=== PATIENT | male | born 1935 | race Caucasian/White ===

== ENCOUNTER 2019-12-23 15:05 | Emergency (ER) | payer OTHER, MEDICARE ==
--- OUTSIDE RECORDS SUMMARY | 2019-12-23 15:09 | XMS REPORT | Clinical Summary ---
:1935 Author Organization [facility] Address [address] [place] [address] Care Team Providers Name Role Phone Nicole Burr MD Primary Care Provider Allergies Active Allergy Reactions Severity Noted Date Comments Codeine GI Intolerance 02/22/2019 Medications Medication Sig Dispensed Refills Start Date End Date Status furosemide (LASIX) 3 12/12/2018 Active 80 mg tablet simvastatin (ZOCOR) Take 80 mg by 2 12/12/2018 Active 80 MG tablet mouth daily. spironolactone TK1 T PO TID WITH 2 12/30/2018 Active (ALDACTONE) 50 MG FOOD tablet warfarin (COUMADIN) TK 1/2 T PO QD 0 02/02/2019 Active 1 MG tablet warfarin (COUMADIN) Take 4 mg by mouth 0 02/02/2019 Active 4 MG tablet daily. tamsulosin (FLOMAX) Take 0.4 mg by 11 01/07/2019 Active 0.4 mg capsule mouth 2 (two) times a day. ezetimibe-simvastati Take 1 tablet by 0 Active n (VYTORIN) 10-40 mg mouth nightly. per tablet acetaminophen Insert 650 mg into 0 Active (TYLENOL) 650 MG the rectum every 4 suppository (four) hours as needed for mild pain. cetirizine (ZyrTEC) Take 10 mg by 0 Active 10 MG tablet mouth daily. docosahexanoic Take by mouth. 0 Active acid-epa (FISH OIL) 120-180 mg capsule ondansetron (ZOFRAN) Take 1 tablet by 20 tablet 2 05/03/2019 Active 8 MG tablet mouth twice daily 30 minutes before Capecitabine as needed for nausea and vomiting ipratropium 2 sprays into each 0 Active (ATROVENT) 42 mcg nostril 2 (two) (0.06 %) nasal spray times a day. capecitabine Take 3 tabs twice 180 tablet 0 04/25/2019 02 (XELODA) 500 mg daily. Take 12 0 chemo hours apart with tabletIndications: food. Begin taking Rectal cancer (HCC) on radiation treatment days (Wednesday-Wednesday ONLY). capecitabine Take 3 tablets PO 55 tablet 0 05/26/2019 06/09/19 2 (XELODA) 500 mg BID, 12 hours 0 chemo apart with food. tabletIndications: Take on days of Rectal cancer (HCC) radiation only (Wednesday through Wednesday only) Hospital, Clinic, or Ordered Dose Route Frequency Start Date End D ate Status Other Facility Administered Medication ondansetron ODT 4 mg oral every 8 hours 05/02/2019 0 Ended (ZOFRAN-ODT) PRN disintegrating tablet 4 mg Active Problems Problem Noted Date Rectal cancer 04/17/2019 Resolved Problems Problem Noted Date Resolved Date On antineoplastic chemotherapy 06/26/2019 0 Encounters Date Type Specialty Care Team Description 12/13/2019 Orders Only Oncology Tsai, Rectal cancer ( HCC) (Primary Dx); WANDY Dee On antineopla stic chemotherapy 12/13/2019 Orders Only Oncology Leila Tsai MA 12/13/2019 Orders Only Oncology Tsai, Rectal cancer ( HCC) (Primary Dx); WANDY Dee On antineopla stic chemotherapy 12/12/2019 Telephone Consult Oncology Roosevelt Carroll can cer (HCC) MD Ana Rosa PhD (Primary Dx) 12/05/2019 Hospital Encounter Radiology Prakash Carroll MD PhD 12/05/2019 Hospital Encounter Radiology Prakash Carroll MD PhD 11/16/2019 Telephone Radiation Oncology Roberto Sanford MD 11/13/2019 Telephone Oncology Ana Rosa Carroll MD PhD 10/25/2019 Telephone Oncology Ana Rosa Carroll MD PhD 10/06/2019 Telephone Radiation Oncology Roberto Sanford MD 10/04/2019 Telephone Oncology Ana Rosa Carroll MD PhD 09/25/2019 Hospital Encounter Radiation Oncology Roberto Sanford MD 08/08/2019 Orders Only Oncology Tsai, Rectal cancer ( HCC) (Primary Dx); WANDY Dee On antineopla stic chemotherapy 08/03/2019 Telephone Consult Oncology Glen, Rectal can cer (HCC) (Primary Dx); MD Ana Rosa PhD On antineoplast ic chemotherapy 08/03/2019 Travel 06/21/2019 Hospital Encounter Radiation Oncology 06/21/2019 Orders Only Oncology Provider, Unknown 06/20/2019 Lab Lab Glen, Rectal cancer ( HCC) MD Ana Rosa PhD 06/20/2019 Hospital Encounter Radiation Oncology Roberto Sanford ectal cancer (HCC) MD Don (Primary Dx) 06/20/2019 Office Visit Oncology Glen, Rectal cancer ( HCC) (Primary Dx); MD Ana Rosa PhD On antineoplast ic chemotherapy 06/20/2019 Hospital Encounter Radiation Oncology Roberto Sanford (Primary Dx) MD Ann Ochoa Marisel, RN 06/20/2019 Hospital Encounter Radiation Oncology 06/20/2019 Orders Only Oncology Leila Tsai MA 06/20/2019 Orders Only Oncology Provider, Unknown 06/19/2019 Telephone Oncology Ana Rosa Carroll MD PhD 06/19/2019 Orders Only Oncology Provider, Unknown 06/14/2019 Hospital Encounter Radiation Oncology 06/14/2019 Orders Only Oncology Provider, Unknown 06/13/2019 Hospital Encounter Radiation Oncology 06/13/2019 Orders Only Oncology Provider, Unknown 06/12/2019 Hospital Encounter Radiation Oncology 06/12/2019 Orders Only Oncology Provider, Unknown 06/09/2019 Hospital Encounter Radiation Oncology 06/09/2019 Orders Only Oncology Provider, Unknown 06/08/2019 Hospital Encounter Radiation Oncology Roberto Sanford MD 06/08/2019 Hospital Encounter Radiation Oncology Roberto Sanford ectal cancer (HCC) MD Don (Primary Dx) 06/08/2019 Hospital Encounter Radiation Oncology 06/08/2019 Orders Only Oncology Provider, Unknown 06/07/2019 Hospital Encounter Radiation Oncology 06/07/2019 Orders Only Oncology Provider, Unknown 06/06/2019 Documentation Pharmacy Juan Reveles [facility] 06/05/2019 Hospital Encounter Radiation Oncology 06/02/2019 Hospital Encounter Radiation Oncology 06/02/2019 Orders Only Oncology Provider, Unknown 06/01/2019 Hospital Encounter Radiation Oncology Roberto Sanford ectal cancer (HCC) MD Don (Primary Dx) Chanel Patel, EDUARD 06/01/2019 Hospital Encounter Radiation Oncology 06/01/2019 Orders Only Oncology Provider, Unknown 05/31/2019 Hospital Encounter Radiation Oncology 05/31/2019 Orders Only Oncology Provider, Unknown 05/30/2019 Hospital Encounter Radiation Oncology 05/30/2019 Orders Only Oncology Provider, Unknown 05/29/2019 Hospital Encounter Radiation Oncology Roberto Sanford MD 05/29/2019 Hospital Encounter Radiation Oncology 05/29/2019 Orders Only Oncology Provider, Unknown 05/26/2019 Hospital Encounter Radiation Oncology 05/26/2019 Orders Only Oncology Silvio, Rectal cancer ( HCC) Sly, EDUARD (Primary Dx) 05/26/2019 Orders Only Oncology Provider, Unknown 05/26/2019 Documentation Oncology Maureen Urban, [facility] 05/25/2019 Hospital Encounter Radiation Oncology Roberto Sanford ectal cancer (HCC) MD Don (Primary Dx) Barbra Russell, EDUARD 05/25/2019 Hospital Encounter Radiation Oncology 05/25/2019 Orders Only Oncology Provider, Unknown 05/24/2019 Hospital Encounter Radiation Oncology 05/24/2019 Orders Only Oncology Provider, Unknown 05/23/2019 Hospital Encounter Radiation Oncology 05/23/2019 Orders Only Oncology Provider, Unknown 05/22/2019 Hospital Encounter Radiation Oncology 05/22/2019 Orders Only Oncology Provider, Unknown 05/19/2019 Hospital Encounter Radiology Roberto Sanford w ith hemoptysis; MD Don Rectal cancer ( HCC) 05/19/2019 Lab Lab Roberto Sanford with he moptysis; MD Don Rectal cancer ( HCC) 05/19/2019 Hospital Encounter Radiation Oncology 05/19/2019 Orders Only Oncology Provider, Unknown 05/18/2019 Hospital Encounter Radiation Oncology Roberto Sanford with hemoptysis (Primary Dx); MD Don Rectal cancer (HCC) Catrachita Haskins, EDUARD 05/18/2019 Hospital Encounter Radiation Oncology 05/18/2019 Hospital Encounter Radiation Oncology Roberto Sanford ectal cancer (HCC) MD Don (Primary Dx) 05/18/2019 Orders Only Oncology Provider, Unknown 05/17/2019 Hospital Encounter Radiation Oncology 05/17/2019 Orders Only Oncology Provider, Unknown 05/16/2019 Hospital Encounter Radiation Oncology 05/16/2019 Orders Only Oncology Provider, Unknown 05/15/2019 Hospital Encounter Radiation Oncology 05/15/2019 Orders Only Oncology Provider, Unknown 05/12/2019 Hospital Encounter Radiation Oncology 05/12/2019 Orders Only Oncology Provider, Unknown 05/11/2019 Hospital Encounter Radiation Oncology Roberto Sanford ectal cancer (HCC) MD Don (Primary Dx) 05/11/2019 Hospital Encounter Radiation Oncology Roberto Sanford ectal cancer (HCC) MD Don (Primary Dx) Barbra Russell RN 05/11/2019 Hospital Encounter Radiation Oncology 05/11/2019 Orders Only Oncology Provider, Unknown 05/10/2019 Hospital Encounter Radiation Oncology 05/10/2019 Telephone Oncology Ana Rosa Carroll MD PhD 05/10/2019 Orders Only Oncology Provider, Unknown 05/09/2019 Hospital Encounter Radiation Oncology Roberto Sanford MD 05/09/2019 Orders Only Oncology Provider, Unknown 05/03/2019 Documentation Oncology Rosa Giraldo [facility] 05/02/2019 Hospital Encounter Radiation Oncology Roberto Sanford MD 05/02/2019 Hospital Encounter Radiation Oncology Roberto Sanford MD 05/02/2019 Hospital Encounter Radiation Oncology Roberto Sanford ectal cancer (HCC) MD Don (Primary Dx) Sommer Juarez RN 05/02/2019 Hospital Encounter Radiation Oncology Roberto Sanford ectal cancer (HCC) MD Don (Primary Dx) 04/25/2019 Orders Only Oncology Sly Anguiano, EDUARD 04/18/2019 Hospital Encounter Radiation Oncology Roberto Sanford MD 04/14/2019 Orders Only Oncology Tsai, Rectal cancer ( HCC) WANDY Dee (Primary Dx) 04/14/2019 Orders Only Oncology Silvio, Rectal cancer ( HCC) EDUARD Heart (Primary Dx) 04/13/2019 Office Visit Oncology Glen, Rectal cancer ( HCC) MD Ana Rosa PhD (Primary Dx) 04/13/2019 Lab Lab Adebayo Mcginnis Rectal mass MD Shaji 03/28/2019 Orders Only General Surgery Rosita Ornelas Rectal mass (Primary Ammon Dx) 03/21/2019 Office Visit General Surgery Adebayo Mcginnis Rectal ca ncer (HCC) MD Shaji (Primary Dx) 03/14/2019 Lab Lab RahelAdebayo MD 03/13/2019 Hospital Encounter Radiology Rahel, Adebayo Rectal mass MD Shaji 03/10/2019 Orders Only General Surgery Rahel, Adebayo Rectal ma ss (Primary MD Shaji Dx) 03/09/2019 Anesthesia Event Gastroenterology Fred Shultz MD Dhother, Gene Koenig MD 03/09/2019 Surgery Gastroenterology RahelAdebayo sharpe COLONOSC OPY/biopsies MD Shaji /hot forceps polypectomy 03/09/2019 Hospital Encounter Gastroenterology Rahel, Adebayo Girard MD 02/28/2019 Hospital Encounter Radiology Rahel, Adebayo Rectal mass MD Shaji 02/28/2019 Lab Lab Rahel, Adebayo Rectal mass MD Shaji 02/23/2019 Orders Only General Surgery Rahel, Adebayo Girard MD 02/23/2019 Orders Only General Surgery RahelAdebayo sharpe Rectal ma ss (Primary MD Shaji Dx) 02/22/2019 Office Visit General Surgery RahelAdebayo sharpe Rectal bl eeding (Primary Dx); MD Shaji Rectal mass after 12/22/2018 Family History Relation Name Status Comments Father Mother Social History Tobacco Use Types Packs/Day Years Used Date Never Smoker Smokeless Tobacco: Never Used Alcohol Use Drinks/Week oz/Week Comments Never Alcohol Habits Answer Date Recorded How often do you have a drink containing alcohol? Never 02/22/2019 How many drinks containing alcohol do you have on a typical Not asked day when you are drinking? How often do you have six or more drinks on one occasion? No t asked Sex Assigned at Date Recorded Not on file Job Start Date Occupation Industry Not on file Not on file Not on file Travel History Travel Start Travel End No recent travel history available. Last Filed Vital Signs Vital Sign Reading Time Taken Comments Blood Pressure 133/81 06/20/2019 3:01 PM [employer] Pulse 91 06/20/2019 3:01 PM [employer] Temperature 36.6 C (97.9 F) 06/20/2019 3:01 PM [employer] Respiratory Rate 17 06/20/2019 3:01 PM [employer] Oxygen Saturation 98% 06/20/2019 3:01 PM [employer] Inhaled Oxygen Concentration - - Weight 74.9 kg (165 lb 2 oz) 06/20/2019 3:01 PM [employer] Height 162.6 cm (5' 4") 06/20/2019 3:01 PM [employer] Body Mass Index 28.34 06/20/2019 3:01 PM [employer] Plan of Treatment Date Type Specialty Care Team Description 12/26/2019 Telephone Consult Oncology Wandy Carroll MD PhD [address] [facility] [address] [place], [place] [address] 05/02/2020 Lab Lab Ana Rosa Carroll MD PhD [address] [facility] [address] [place], [place] [address] 05/02/2020 Appointment Radiology Ana Rosa Carroll MD PhD [address] [facility] [address] [place], [place] [address] 05/02/2020 Appointment Radiology Ana Rosa Carroll MD PhD [address] [facility] [address]; [address] [place], [place] [address] 05/02/2020 Office Visit Oncology Ana Rosa Carroll MD PhD [address] [facility] [address] [place], [place] [address] Health Maintenance Due Date Last Done Comments SHINGLES VACCINES (#1) 1987 65+ PNEUMOCOCCAL VACCINE (1 of 2 - PCV13) 2002 INFLUENZA VACCINE 01/25/2020 Procedures Procedure Name Priority Date/Time Associated Comments Diagnosis MRI ABD/PELVIC EXTERNAL Routine 11/09/2019 1:03 Results for this STUDY PM CDT procedure are i n the results section. MRI ABD/PELVIC EXTERNAL Routine 11/09/2019 12:31 Results for this STUDY PM CDT procedure are i n the results section. RAD ONC DAILY TREATMENT Routine 06/21/2019 1:10 Results for this PM [employer] procedure are i n the results section. ESTIMATED GFR Routine 06/20/2019 4:08 Results fo r this PM [employer] procedure are i n the results section. URINALYSIS SCREEN AND Routine 06/20/2019 4:08 Rectal cancer R esults for this MICROSCOPY, WITH REFLEX PM [employer] (HCC) proc edure are in TO CULTURE the results section. CARCINOEMBRYONIC ANTIGEN Routine 06/20/2019 4:08 Rectal cance r Results for this (CEA) PM [employer] (HCC) procedure are i n the results section. COMPREHENSIVE METABOLIC Routine 06/20/2019 4:08 Rectal cancer Results for this PANEL PM [employer] (HCC) procedure are i n the results section. HC COMPLETE BLD COUNT Routine 06/20/2019 4:08 Rectal cancer R esults for this W/AUTO DIFF PM [employer] (HCC) procedure are i n the results section. URINE CULTURE Routine 06/20/2019 4:08 Results fo r this PM [employer] procedure are i n the results section. RAD ONC DAILY TREATMENT Routine 06/20/2019 1:19 Results for this PM [employer] procedure are i n the results section. RAD ONC DAILY TREATMENT Routine 06/19/2019 1:22 Results for this PM [employer] procedure are i n the results section. RAD ONC DAILY TREATMENT Routine 06/14/2019 1:46 Results for this PM [employer] procedure are i n the results section. RAD ONC DAILY TREATMENT Routine 06/13/2019 1:25 Results for this PM [employer] procedure are i n the results section. RAD ONC DAILY TREATMENT Routine 06/12/2019 1:14 Results for this PM [employer] procedure are i n the results section. RAD ONC DAILY TREATMENT Routine 06/09/2019 1:39 Results for this PM [employer] procedure are i n the results section. RAD ONC DAILY TREATMENT Routine 06/08/2019 1:19 Results for this PM [employer] procedure are i n the results section. RAD ONC DAILY TREATMENT Routine 06/07/2019 2:08 Results for this PM [employer] procedure are i n the results section. RAD ONC DAILY TREATMENT Routine 06/02/2019 1:51 Results for this PM [employer] procedure are i n the results section. RAD ONC DAILY TREATMENT Routine 06/01/2019 1:23 Results for this PM [employer] procedure are i n the results section. RAD ONC DAILY TREATMENT Routine 05/31/2019 1:46 Results for this PM [employer] procedure are i n the results section. RAD ONC DAILY TREATMENT Routine 05/30/2019 1:04 Results for this PM [employer] procedure are i n the results section. RAD ONC DAILY TREATMENT Routine 05/29/2019 1:26 Results for this PM [employer] procedure are i n the results section. RAD ONC DAILY TREATMENT Routine 05/26/2019 1:28 Results for this PM [employer] procedure are i n the results section. RAD ONC DAILY TREATMENT Routine 05/25/2019 1:08 Results for this PM [employer] procedure are i n the results section. RAD ONC DAILY TREATMENT Routine 05/24/2019 1:27 Results for this PM [employer] procedure are i n the results section. RAD ONC DAILY TREATMENT Routine 05/23/2019 12:59 Results for this PM [employer] procedure are i n the results section. RAD ONC DAILY TREATMENT Routine 05/22/2019 1:20 Results for this PM [employer] procedure are i n the results section. CT CHEST W CONTRAST Routine 05/19/2019 3:45 Cough with Resu lts for this PM [employer] hemoptysis procedure are in Rectal cancer the results (HCC) section. ESTIMATED GFR Routine 05/19/2019 2:19 Results fo r this PM [employer] procedure are i n the results section. HC COMPLETE BLD COUNT Routine 05/19/2019 2:19 Cough with Re sults for this W/AUTO DIFF PM [employer] hemoptysis procedure are in Rectal cancer the results (HCC) section. COMPREHENSIVE METABOLIC Routine 05/19/2019 2:19 Cough with Results for this PANEL PM [employer] hemoptysis procedure are in Rectal cancer the results (HCC) section. RAD ONC DAILY TREATMENT Routine 05/19/2019 1:23 Results for this PM [employer] procedure are i n the results section. RAD ONC DAILY TREATMENT Routine 05/18/2019 2:21 Results for this PM [employer] procedure are i n the results section. RAD ONC DAILY TREATMENT Routine 05/17/2019 1:46 Results for this PM [employer] procedure are i n the results section. RAD ONC DAILY TREATMENT Routine 05/16/2019 1:33 Results for this PM [employer] procedure are i n the results section. RAD ONC DAILY TREATMENT Routine 05/15/2019 1:38 Results for this PM [employer] procedure are i n the results section. RAD ONC DAILY TREATMENT Routine 05/12/2019 1:45 Results for this PM [employer] procedure are i n the results section. RAD ONC DAILY TREATMENT Routine 05/11/2019 1:33 Results for this PM [employer] procedure are i n the results section. RAD ONC DAILY TREATMENT Routine 05/10/2019 1:33 Results for this PM [employer] procedure are i n the results section. RAD ONC DAILY TREATMENT Routine 05/09/2019 1:52 Results for this PM [employer] procedure are i n the results section. HC COMPLETE BLD COUNT Routine 04/13/2019 12:49 Rectal mass Re sults for this W/AUTO DIFF PM [employer] procedure are i n the results section. MRI PELVIS W WO CONTRAST Routine 03/13/2019 2:45 Rectal mass Results for this PM [employer] procedure are i n the results section. SURGICAL PATHOLOGY Routine 03/09/2019 12:02 Resul ts for this REQUEST PM [employer] procedure are i n the results section. SURGICAL PATHOLOGY Routine 03/09/2019 12:02 Resul ts for this REQUEST PM [employer] procedure are i n the results section. SURGICAL PATHOLOGY Routine 03/09/2019 12:02 Resul ts for this REQUEST PM [employer] procedure are i n the results section. COLONOSCOPY 03/09/2019 10:00 Rectal mass AM [employer] CT CHEST W CONTRAST STAT 02/28/2019 5:18 Rectal mass Resu lts for this ABDOMEN W CONTRAST PM [employer] procedure are in PELVIS W CONTRAST the result s section. ESTIMATED GFR STAT 02/28/2019 1:44 Results fo r this PM [employer] procedure are i n the results section. HC COMPLETE BLD COUNT STAT 02/28/2019 1:44 Rectal mass Re sults for this W/AUTO DIFF PM [employer] procedure are i n the results section. COMPREHENSIVE METABOLIC STAT 02/28/2019 1:44 Rectal mass Results for this PANEL PM [employer] procedure are i n the results section. PROTHROMBIN TIME WITH STAT 02/28/2019 1:44 Rectal mass Re sults for this INR PM [employer] procedure are i n the results section. PARTIAL THROMBOPLASTIN STAT 02/28/2019 1:44 Rectal mass R esults for this TIME (PTT) PM [employer] procedure are i n the results section. CARCINOEMBRYONIC ANTIGEN STAT 02/28/2019 1:44 Rectal mass Results for this (CEA) PM [employer] procedure are i n the results section. after 12/22/2018 Results MRI Abd/Pelvic External Study (11/09/2019 1:03 PM CDT)Only the most recent of2 resultswithin the time period is included. Specimen Narrative Performed At This exam was not acquired at a [facility] facility and has not been [facility] interpreted by a [facility] Provider. T he exam was imported into our imaging system. Performing Organization Address City/State/Zipcode Phone Number [facility] [address] [place] [address] RAD ONC DAILY TREATMENT (06/21/2019 1:10 PM [employer]) Pathologist Sig nature Course ID [id number] ARIA Course Start Date 2019-05-02 @11:15 ARIA Treatment Elapsed Days 43 ARIA Course Intent Curative w/chemo ARIA Treatment Dates First Treatment Date: 2019-05-09 @13:52 ARIA Last Treatment Date: 2019-06-21 @13:07 Reference Point ID Rectum Boost ARIA Dosage Given to Date 5.4 ARIA in Gy Session Dosage Given 1.8 ARIA in Gy Plan ID Rectum Boost ARIA Plan Name Rectum Boost ARIA Fractions Treated to 3 of 3 ARIA Date Prescribed Dose Per 1.8 ARIA Fraction in Gy Prescription Dose in 540 ARIA cGy Specimen Performing Organization Address City/[facility] Phone Number DEANN [address] [place] [address] Urinalysis screen and microscopy, with reflex to culture (06/20/2019 4:08 PM [employer]PER[employer]JUST[employer]) Pathologist Sig nature Specimen site Clean catch [facility] Color, UA Straw [facility] Appearance, UA Clear [facility] Specific gravity, 1.009 1.001 - 1.035 [facility] pH, UA 7.0 5.0 - 8.5 [facility] Protein, UA Negative Negative [facility] Glucose, UA Negative Negative [facility] Ketones, UA Negative Negative [facility] Bilirubin, UA Negative Negative [facility] Blood, UA Small (A) Negative [facility] Nitrite, UA Negative Negative [facility] Urobilinogen, UA <2.0 <2.0 [facility] Leukocyte esterase, Negative Negative [facility] WBC, UA <1 0 - 1 /HPF [facility] RBC, UA 2 0 - 5 /HPF [facility] Bacteria, UA None seen None seen [facility] Yeast, UA None seen [facility] Yeast with None seen [facility] pseudohyphae, HOSPITAL Specimen Urine Performing Organization Address City/[facility]/Zipcode Phone Number [facility] DEPARTMENT OF PATHOLOGY AND [address] [place], [place] [address] [facility] [place] [phone] [place] [address] Estimated GFR (06/20/2019 4:08 PM [employer] OPERATOR [employer]JUSTER)Only the most recent of3 resultswithin the time period is included. Estimated GFR 44 (A) mL/min/1.73 [facility] Comment: m2 HOSPITAL Catergory Units Interpretation G1 >=90 Normal or high G2 60-89 Mildly decreased G3a 45-59 Mildly to moderately decreas ed G3b 30-44 Moderately to severely decre ased G4 15-29 Severely decreased G5 <15 Kidney failure The eGFR was calculated using the Chronic Kidney Disea se Epidemiology Collaboration (CKD-EPI) equation. Interpretation is based on recommendations of the National Kidney Foundation-Kidney Disease Outcomes Loco lity Initiative (NKF-KDOQI) published in 2014. Specimen Plasma specimen Performing Organization Address City/State/Zipcode Phone Number [facility] DEPARTMENT OF PATHOLOGY AND [address] [place], [place] [address] GENOMIC MEDICINE [facility] [address] [place] [address] CBC with platelet and differential (06/20/2019 4:08 PM COM[employer] OPERATOR ADJUSTER)Only the most recent of4 resultswithin the time period is included. WBC 5.61 4.50 - 11.00 [facility] k/uL HOSPITAL RBC 3.85 (L) 4.40 - 6.00 [facility] m/[facility] HGB 12.0 (L) 14.0 - 18.0 [facility] gdL [facility] HCT 34.5 (L) 41.0 - 51.0 % [facility] MCV 89.6 82.0 - 100.0 [facility] MCH 31.2 27.0 - 34.0 pg [facility] MCHC 34.8 31.0 - 37.0 [facility] RDW - SD 58.6 (H) 37.0 - 55.0 fL [facility] MPV 8.6 (L) 8.8 - 13.2 fL [facility] Platelet count 223 150 - 400 k/uL [facility] Nucleated RBC 0.00 /100 WBC [facility] Neutrophils 74.5 (H) 39.0 - 69.0 % [facility] Lymphocytes 8.9 (L) 25.0 - 45.0 % [facility] Monocytes 11.8 (H) 0.0 - 10.0 % [facility] Eosinophils 3.6 0.0 - 5.0 % [facility] Basophils 0.5 0.0 - 1.0 % [facility] Immature granulocytes 0.7Comment: 0.0 - 1.0 % [facility] "Immature HOSPITAL granulocytes" (promyelocytes , myelocytes, metamyelocytes ) Specimen Blood Performing Organization Address City/State/Zipcode Phone Number [facility] DEPARTMENT OF PATHOLOGY AND [address] [place] [phone] Urine culture (06/20/2019 4:08 PM COMPRESSOR OPERATOR ADJUSTER) Pathologist Sig nature Urine culture SEE COMMENTComment: [facility] Bacteriuria screen HOSPITAL negative. Specimen Performing Organization Address City/[facility]/Zipcode Phone Number [facility] DEPARTMENT OF PATHOLOGY AND [address] [place] [phone] Carcinoembryonic antigen (CEA) (06/20/2019 4:08 PM COMPRESSOR OPERATOR ADJUSTER)Only the most recent of2 resultswithin the time period is included. Pathologist [facility] CEA 4.5 (H) 0.0 - 3.8 [facility] Comment: ng/mL HOSPITAL Reference range for heavy smokers: 0.0 - 5.5 ng/mL The BE[employer] Annabella 8000 CEA immunoassay was used. Results obtained with different assay methods or kits should not be used interchangeably and may be differen t. Specimen Serum Performing Organization Address [facility] Cent[facility] Phone Number [facility] DEPARTMENT OF PATHOLOGY AND [address] [place] [phone] Comprehensive metabolic panel (06/20/2019 4:08 PM COMPRESSOR OPERATOR ADJUSTER)Only the most recent of3 resultswithin the time period is included. Sodium 134 (L) 135 - 148 [facility] mEq/L [facility] Potassium 4.0 3.5 - 5.0 [facility] mEq/L [facility] Chloride 94 (L) 98 - 112 mEq/L [facility] CO2 26 24 - 31 mEq/L [facility] Anion gap 14@ANIO 7 - 15 mEq/L [facility] BUN 22 8 - 23 mg/dL [facility] Creatinine 1.46 (H) 0.70 - 1.20 [facility] mg/dL HOSPITAL Glucose 117 (H) 65 - 99 mg/dL [facility] Calcium 9.3 8.8 - 10.2 [facility] mg/dL HOSPITAL Protein 7.4 6.3 - 8.3 g/dL [facility] Comment: HOSPITAL Hxvovkk5102.6-7.0 g/dL 1 muif9600.4-7.6 g/dL 7 months-9nsvh110.1-7.3 g/dL 1-2 piexy009.6-7.5 g/dL >3 xtlbu894.0-8.0 g/dL 18-4931862.3-8.3 g/dL Albumin 3.9 3.5 - 5.0 g/dL [facility] A/G ratio 1.1 0.7 - 3.8 [facility] Alkaline phosphatase 50 40 - 129 U/L [facility] AST 34 10 - 50 U/L [facility] ALT 16 5 - 50 U/L [facility] Total bilirubin 0.8 0.0 - 1.2 [facility] mg/dL [facility] Specimen Plasma specimen Performing Organization Address City/State/Zipcode Phone Number [facility] DEPARTMENT OF PATHOLOGY AND [address] [place] [phone] GENOMIC MEDICINE [address] [address] RAD ONC DAILY TREATMENT (06/20/2019 1:19 PM COMPRESSOR OPERATOR ADJUSTER) Pathologist Sig nature Course ID C1 ARIA Course Start Date 2019-05-02 @11:15 ARIA Treatment Elapsed Days 42 ARIA Course Intent Curative w/chemo ARIA Treatment Dates First Treatment Date: 2019-05-09 @13:52 ARIA Last Treatment Date: 2019-06-20 @13:19 Reference Point ID Rectum Boost ARIA Dosage Given to Date 3.6 ARIA in Gy Session Dosage Given 1.8 ARIA in Gy Plan ID Rectum Boost ARIA Plan Name Rectum Boost ARIA Fractions Treated to 2 of 3 ARIA Date Prescribed Dose Per 1.8 ARIA Fraction in Gy Prescription Dose in 540 ARIA cGy Specimen Performing Organization Address City/State/Zipcode Phone Number [address] [place] [address] RAD ONC DAILY TREATMENT (06/19/2019 1:22 PM COMPRESSOR OPERATOR ADJUSTER) Pathologist Sig nature Course ID C1 ARIA Course Start Date 2019-05-02 @11:15 ARIA Treatment Elapsed Days 41 ARIA Course Intent Curative w/chemo ARIA Treatment Dates First Treatment Date: 2019-05-09 @13:52 ARIA Last Treatment Date: 2019-06-19 @13:21 Reference Point ID Rectum Boost ARIA Dosage Given to Date 1.8 ARIA in Gy Session Dosage Given 1.8 ARIA in Gy Plan ID Rectum Boost ARIA Plan Name Rectum Boost ARIA Fractions Treated to 1 of 3 ARIA Date Prescribed Dose Per 1.8 ARIA Fraction in Gy Prescription Dose in 540 ARIA cGy Specimen Performing Organization Address [facility] Phone Number ARIOmar [address] [place] [address] RAD ONC DAILY TREATMENT (06/14/2019 1:46 PM COMPRESSOR OPERATOR ADJUSTER) Pathologist Sig nature Course ID C1 ARIA Course Start Date 2019-05-02 @11:15 ARIA Treatment Elapsed Days 36 ARIA Course Intent Curative w/chemo ARIA Treatment Dates First Treatment Date: 2019-05-09 @13:52 ARIA Last Treatment Date: 2019-06-14 @13:46 Reference Point ID Rectum ARIA Dosage Given to Date 45 ARIA in Gy Session Dosage Given 1.8 ARIA in Gy Plan ID Rectum ARIA Plan Name Rectum ARIA Fractions Treated to 25 of 25 ARIA Date Prescribed Dose Per 1.8 ARIA Fraction in Gy Prescription Dose in 4,500 ARIA cGy Specimen Performing Organization Address [facility] Phone Number ARIA [address] [place] [address] RAD ONC DAILY TREATMENT (06/13/2019 1:25 PM COMPRESSOR OPERATOR ADJUSTER) Pathologist [facility] Emefcy Course ID C1 ARIA Course Start Date 2019-05-02 @11:15 ARIA Treatment Elapsed Days 35 ARIA Course Intent Curative w/chemo ARIA Treatment Dates First Treatment Date: 2019-05-09 @13:52 ARIA Last Treatment Date: 2019-06-13 @13:25 Reference Point ID Rectum ARIA Dosage Given to Date 43.2 ARIA in Gy Session Dosage Given 1.8 ARIA in Gy Plan ID Rectum ARIA Plan Name Rectum ARIA Fractions Treated to 24 of 25 ARIA Date Prescribed Dose Per 1.8 ARIA Fraction in Gy Prescription Dose in 4,500 ARIA cGy Specimen Performing Organization Address [facility] Phone Number DEANN [address] [place] [address] RAD ONC DAILY TREATMENT (06/12/2019 1:14 PM COMPRESSOR OPERATOR ADJUSTER) Pathologist [facility] Emefcy Course ID C1 ARIA Course Start Date 2019-05-02 @11:15 ARIA Treatment Elapsed Days 34 ARIA Course Intent Curative w/chemo ARIA Treatment Dates First Treatment Date: 2019-05-09 @13:52 ARIA Last Treatment Date: 2019-06-12 @13:11 Reference Point ID Rectum ARIA Dosage Given to Date 41.4 ARIA in Gy Session Dosage Given 1.8 ARIA in Gy Plan ID Rectum ARIA Plan Name Rectum ARIA Fractions Treated to 23 of 25 ARIA Date Prescribed Dose Per 1.8 ARIA Fraction in Gy Prescription Dose in 4,500 ARIA cGy Specimen Performing Organization Address [facility] Phone Number ARIA [address] [place] [address] RAD ONC DAILY TREATMENT (06/09/2019 1:39 PM COMPRESSOR OPERATOR ADJUSTER) Pathologist Sig nature Course ID C1 ARIA Course Start Date 2019-05-02 @11:15 ARIA Treatment Elapsed Days 31 ARIA Course Intent Curative w/chemo ARIA Treatment Dates First Treatment Date: 2019-05-09 @13:52 ARIA Last Treatment Date: 2019-06-09 @13:39 Reference Point ID Rectum ARIA Dosage Given to Date 39.6 ARIA in Gy Session Dosage Given 1.8 ARIA in Gy Plan ID Rectum ARIA Plan Name Rectum ARIA Fractions Treated to of ARIA Date Prescribed Dose Per 1.8 ARIA Fraction in Gy Prescription Dose in 4,500 ARIA cGy Specimen Performing Organization Address [facility] Phone Number ARIA [address] [place] [address] RAD ONC DAILY TREATMENT (06/08/2019 1:19 PM COMPRESSOR OPERATOR ADJUSTER) Pathologist Sig nature Course ID C1 ARIA Course Start Date 2019-05-02 @11:15 ARIA Treatment Elapsed Days 30 ARIA Course Intent Curative w/chemo ARIA Treatment Dates First Treatment Date: 2019-05-09 @13:52 ARIA Last Treatment Date: 2019-06-08 @13:19 Reference Point ID Rectum ARIA Dosage Given to Date 37.8 ARIA in Gy Session Dosage Given 1.8 ARIA in Gy Plan ID Rectum ARIA Plan Name Rectum ARIA Fractions Treated to 21 of 25 ARIA Date Prescribed Dose Per 1.8 ARIA Fraction in Gy Prescription Dose in 4,500 ARIA cGy Specimen Performing Organization Address [facility] Phone Number ARIA [address] [place] [address] RAD ONC DAILY TREATMENT (06/07/2019 2:08 PM COMPRESSOR OPERATOR ADJUSTER) Pathologist Sig nature Course ID C1 ARIA Course Start Date 2019-05-02 @11:15 ARIA Treatment Elapsed Days 29 ARIA Course Intent Curative w/chemo ARIA Treatment Dates First Treatment Date: 2019-05-09 @13:52 ARIA Last Treatment Date: 2019-06-07 @14:06 Reference Point ID Rectum ARIA Dosage Given to Date 36 ARIA in Gy Session Dosage Given 1.8 ARIA in Gy Plan ID Rectum ARIA Plan Name Rectum ARIA Fractions Treated to 20 of 25 ARIA Date Prescribed Dose Per 1.8 ARIA Fraction in Gy Prescription Dose in 4,500 ARIA cGy Specimen Performing Organization Address [facility] Phone Number [facility] [address] [place] [address] RAD ONC DAILY TREATMENT (06/02/2019 1:51 PM COMPRESSOR OPERATOR ADJUSTER) Pathologist Sig nature Course ID C1 ARIA Course Start Date 2019-05-02 @11:15 ARIA Treatment Elapsed Days 24 ARIA Course Intent Curative w/chemo ARIA Treatment Dates First Treatment Date: 2019-05-09 @13:52 ARIA Last Treatment Date: 2019-06-02 @13:49 Reference Point ID Rectum ARIA Dosage Given to Date 34.2 ARIA in Gy Session Dosage Given 1.8 ARIA in Gy Plan ID Rectum ARIA Plan Name Rectum ARIA Fractions Treated to ARIA Date Prescribed Dose Per 1.8 ARIA Fraction in Gy Prescription Dose in 4,500 ARIA cGy Specimen Performing Organization Address [facility] Phone Number [facility] [address] [place] [address] RAD ONC DAILY TREATMENT (06/01/2019 1:23 PM COMPRESSOR OPERATOR ADJUSTER) Pathologist Sig nature Course ID C1 ARIA Course Start Date 2019-05-02 @11:15 ARIA Treatment Elapsed Days 23 ARIA Course Intent Curative w/chemo ARIA Treatment Dates First Treatment Date: 2019-05-09 @13:52 ARIA Last Treatment Date: 2019-06-01 @13:22 Reference Point ID Rectum ARIA Dosage Given to Date 32.4 ARIA in Gy Session Dosage Given 1.8 ARIA in Gy Plan ID Rectum ARIA Plan Name Rectum ARIA Fractions Treated to 18 of 25 ARIA Date Prescribed Dose Per 1.8 ARIA Fraction in Gy Prescription Dose in 4,500 ARIA cGy Specimen Performing Organization Address [facility] Phone Number DEANN [address] [place] [address] RAD ONC DAILY TREATMENT (05/31/2019 1:46 PM COMPRESSOR OPERATOR ADJUSTER) Pathologist Sig nature Course ID C1 ARIA Course Start Date 2019-05-02 @11:15 ARIA Treatment Elapsed Days 22 ARIA Course Intent Curative w/chemo ARIA Treatment Dates First Treatment Date: 2019-05-09 @13:52 ARIA Last Treatment Date: 2019-05-31 @13:46 Reference Point ID Rectum ARIA Dosage Given to Date 30.6 ARIA in Gy Session Dosage Given 1.8 ARIA in Gy Plan ID Rectum ARIA Plan Name Rectum ARIA Fractions Treated to 17 of 25 ARIA Date Prescribed Dose Per 1.8 ARIA Fraction in Gy Prescription Dose in 4,500 ARIA cGy Specimen Performing Organization Address [facility] Phone Number [facility]Omar [address] [place] [address] RAD ONC DAILY TREATMENT (05/30/2019 1:04 PM COMPRESSOR OPERATOR ADJUSTER) Pathologist Sig nature Course ID C1 ARIA Course Start Date 2019-05-02 @11:15 ARIA Treatment Elapsed Days 21 ARIA Course Intent Curative w/chemo ARIA Treatment Dates First Treatment Date: 2019-05-09 @13:52 ARIA Last Treatment Date: 2019-05-30 @13:03 Reference Point ID Rectum ARIA Dosage Given to Date 28.8 ARIA in Gy Session Dosage Given 1.8 ARIA in Gy Plan ID Rectum ARIA Plan Name Rectum ARIA Fractions Treated to 16 of 25 ARIA Date Prescribed Dose Per 1.8 ARIA Fraction in Gy Prescription Dose in 4,500 ARIA cGy Specimen Performing Organization Address [facility] Phone Number [facility]mar [address] [place] [address] RAD ONC DAILY TREATMENT (05/29/2019 1:26 PM COMPRESSOR OPERATOR ADJUSTER) Pathologist Sig nature Course ID C1 ARIA Course Start Date 2019-05-02 @11:15 ARIA Treatment Elapsed Days 20 ARIA Course Intent Curative w/chemo ARIA Treatment Dates First Treatment Date: 2019-05-09 @13:52 ARIA Last Treatment Date: 2019-05-29 @13:19 Reference Point ID Rectum ARIA Dosage Given to Date 27 ARIA in Gy Session Dosage Given 1.8 ARIA in Gy Plan ID Rectum ARIA Plan Name Rectum ARIA Fractions Treated to 15 of 25 ARIA Date Prescribed Dose Per 1.8 ARIA Fraction in Gy Prescription Dose in 4,500 ARIA cGy Specimen Performing Organization Address [facility] Phone Number DEANN [address] [place] [address] RAD ONC DAILY TREATMENT (05/26/2019 1:28 PM COMPRESSOR OPERATOR ADJUSTER) Pathologist Sig nature Course ID C1 ARIA Course Start Date 2019-05-02 @11:15 ARIA Treatment Elapsed Days 17 ARIA Course Intent Curative w/chemo ARIA Treatment Dates First Treatment Date: 2019-05-09 @13:52 ARIA Last Treatment Date: 2019-05-26 @13:27 Reference Point ID Rectum ARIA Dosage Given to Date 25.2 ARIA in Gy Session Dosage Given 1.8 ARIA in Gy Plan ID Rectum ARIA Plan Name Rectum ARIA Fractions Treated to 14 of 25 ARIA Date Prescribed Dose Per 1.8 ARIA Fraction in Gy Prescription Dose in 4,500 ARIA cGy Specimen Performing Organization Address [facility] Phone Number [facility]mar [address] [place] [address] RAD ONC DAILY TREATMENT (05/25/2019 1:08 PM COMPRESSOR OPERATOR ADJUSTER) Pathologist Sig nature Course ID C1 ARIA Course Start Date 2019-05-02 @11:15 ARIA Treatment Elapsed Days 16 ARIA Course Intent Curative w/chemo ARIA Treatment Dates First Treatment Date: 2019-05-09 @13:52 ARIA Last Treatment Date: 2019-05-25 @13:08 Reference Point ID Rectum ARIA Dosage Given to Date 23.4 ARIA in Gy Session Dosage Given 1.8 ARIA in Gy Plan ID Rectum ARIA Plan Name Rectum ARIA Fractions Treated to 13 of 25 ARIA Date Prescribed Dose Per 1.8 ARIA Fraction in Gy Prescription Dose in 4,500 ARIA cGy Specimen Performing Organization Address [facility] Phone Number DEANN [address] [place] [address] RAD ONC DAILY TREATMENT (05/24/2019 1:27 PM COMPRESSOR OPERATOR ADJUSTER) Pathologist Sig nature Course ID C1 ARIA Course Start Date 2019-05-02 @11:15 ARIA Treatment Elapsed Days 15 ARIA Course Intent Curative w/chemo ARIA Treatment Dates First Treatment Date: 2019-05-09 @13:52 ARIA Last Treatment Date: 2019-05-24 @13:26 Reference Point ID Rectum ARIA Dosage Given to Date 21.6 ARIA in Gy Session Dosage Given 1.8 ARIA in Gy Plan ID Rectum ARIA Plan Name Rectum ARIA Fractions Treated to of 25 ARIA Date Prescribed Dose Per 1.8 ARIA Fraction in Gy Prescription Dose in 4,500 ARIA cGy Specimen Performing Organization Address [facility] Phone Number DEANN [address] [place] [address] RAD ONC DAILY TREATMENT (05/23/2019 12:59 PM COMPRESSOR OPERATOR ADJUSTER) Pathologist Sig nature Course ID C1 ARIA Course Start Date 2019-05-02 @11:15 ARIA Treatment Elapsed Days 14 ARIA Course Intent Curative w/chemo ARIA Treatment Dates First Treatment Date: 2019-05-09 @13:52 ARIA Last Treatment Date: 2019-05-23 @12:59 Reference Point ID Rectum ARIA Dosage Given to Date 19.8 ARIA in Gy Session Dosage Given 1.8 ARIA in Gy Plan ID Rectum ARIA Plan Name Rectum ARIA Fractions Treated to ARIA Date Prescribed Dose Per 1.8 ARIA Fraction in Gy Prescription Dose in 4,500 ARIA cGy Specimen Performing Organization Address [facility] Phone Number ARIA [address] [place] [address] RAD ONC DAILY TREATMENT (05/22/2019 1:20 PM COMPRESSOR OPERATOR ADJUSTER) Pathologist Sig nature Course ID C1 ARIA Course Start Date 2019-05-02 @11:15 ARIA Treatment Elapsed Days 13 ARIA Course Intent Curative w/chemo ARIA Treatment Dates First Treatment Date: 2019-05-09 @13:52 ARIA Last Treatment Date: 2019-05-22 @13:20 Reference Point ID Rectum ARIA Dosage Given to Date 18 ARIA in Gy Session Dosage Given 1.8 ARIA in Gy Plan ID Rectum ARIA Plan Name Rectum ARIA Fractions Treated to 10 of 25 ARIA Date Prescribed Dose Per 1.8 ARIA Fraction in Gy Prescription Dose in 4,500 ARIA cGy Specimen Performing Organization Address [facility] Phone Number DEANN [address] [place] [address] CT Chest W Contrast (05/19/2019 3:45 PM COMPRESSOR OPERATOR ADJUSTER) Specimen Narrative Performed At EXAMINATION: CT CHEST W CONTRAST HM [facility]IANT CLINICAL HISTORY: 84 years Male R04.2 Hemoptysis, C20 Malignant neoplasm of rectum, Hemoptysis persistent or re curring TECHNIQUE: Multiple axial images of the chest were o btained following intravenous contrast. Sagittal and coronal computerize d reformatted images were also obtained. CT imaging was performed wi iterative reconstruction techniques and/or automat ed exposure control to reduce radiation dos e. COMPARISON: February 28, 2019 IMPRESSION: Lungs and airways: Subpleural reticular thickening wit h a basilar predominance. No definite honeycombing. No definite tr action bronchiectasis. Nonspecific fibrosis is suspected. Fin ding is similar in appearance to prior. Mild bronchial wall thickening without dilatation most pronounced in the lung bases, right slightly greater than left compatible with bronchitis. Small am ount of mucus plugging is present peripherally in the right lower lobe Mild mosaic pattern throughout the lungs. No suspiciou s focal nodules or consolidation Pleura: Small nonspecific subcentimeter mediastinal an d hilar lymph nodes some of which are calcified likely from granulomatous disease Mediastinum and lymph nodes: No lymphade nopathy. Cardiovascular: 4 chambered cardiomegaly, unchanged. P ulmonary artery is not dilated measuring 3.0 cm Moderate calcified athero sclerotic vascular disease in the coronary arteries and aor ta. Upper abdomen: No suspicious abnormaliti es. Bones: Degenerative changes of the osseous structures. No suspicious lesions. Other: Bilateral gynecomastia SUMMARY: Subpleural reticular thickening with a basilar predomi nance. No definite honeycombing. No definite traction bronchiectasis. Non specific fibrosis is suspected. Finding is similar in appearance to prio r. Mild bronchial wall thickening without dilatation most pronounced in the lung bases, right slightly grea ter than left compatible with bronchitis. Small amount of mucus plug ging is present peripherally in the right lower lobe [facility]-[id number] Procedure Note Interface, Radiology Results Incoming - 05/19/2019 3:56 PM COMPRESSOR OPERATOR ADJUSTER EXAMINATION: CT CHEST W CONTRAST CLINICAL HISTORY: 84 years Male R04.2 He moptysis, C20 Malignant neoplasm of rectum, Hemoptysis persistent or recurring TECHNIQUE: Multiple axial images of the chest were obtained following intravenous contrast. Sagittal and coronal computerized reformatted images were also obtained. CT imaging was performed with iterative reconstruction techniques and/or automated exposure control to reduce radiation dos e. COMPARISON: February 28, 2019 IMPRESSION: Lungs and airways: Subpleural reticular thickening with a basilar predominance. No definite honeycombing. No definite traction bronchiectasis. Nonspecific fibrosis is suspected. Finding is similar in appearance to prior. Mild bronchial wall thickening without dilatation most pronounced in th e lung bases, right slightly greater than left compatible with bronchitis. Small amount of mucus plugging is present peripherally in the right lower lobe Mild mosaic pattern throughout the lungs . No suspicious focal nodules or consolidation Pleura: Small nonspecific subcentimeter mediastinal and hilar lymph nodes some of which are calcified likely from granulomatous disease Mediastinum and lymph nodes: No lymphade nopathy. Cardiovascular: 4 chambered cardiomegaly , unchanged. Pulmonary artery is not dilated measuring 3.0 cm Moderate calcified atherosclerotic vascular disease in the coronary arteries and aorta. Upper abdomen: No suspicious abnormaliti es. Bones: Degenerative changes of the osseo us structures. No suspicious lesions. Other: Bilateral gynecomastia SUMMARY: Subpleural reticular thickening with a b asilar predominance. No definite honeycombing. No definite traction bronchiectasis. Nonspecific fibrosis is suspected. Finding is similar in appearance to prior. Mild bronchial wall thickening without dilatation most pronounced in the lung bases, right slightly greater than left compatible with bronchitis. Small amount of mucus plugging is present peripherally in the right lower lobe [id number] Performing Organization Address City/[facility]/Zipcode Phone Number [facility] [address] [place] [address] RAD ONC DAILY TREATMENT (05/19/2019 1:23 PM COMPRESSOR OPERATOR ADJUSTER) Pathologist [facility] Course ID C1 ARIA Course Start Date 2019-05-02 @11:15 ARIA Treatment Elapsed Days 10 ARIA Course Intent Curative w/chemo ARIA Treatment Dates First Treatment Date: 2019-05-09 @13:52 ARIA Last Treatment Date: 2019-05-19 @13:23 Reference Point ID Rectum ARIA Dosage Given to Date 16.2 ARIA in Gy Session Dosage Given 1.8 ARIA in Gy Plan ID Rectum ARIA Plan Name Rectum ARIA Fractions Treated to ARIA Date Prescribed Dose Per 1.8 ARIA Fraction in Gy Prescription Dose in 4,500 ARIA cGy Specimen Performing Organization Address City/[facility]/[employer] Phone Number [facility]mar [address] [place] [address] RAD ONC DAILY TREATMENT (05/18/2019 2:21 PM COMPRESSOR OPERATOR ADJUSTER) Pathologist Sig nature Course ID C1 ARIA Course Start Date 2019-05-02 @11:15 ARIA Treatment Elapsed Days 9 ARIA Course Intent Curative w/chemo ARIA Treatment Dates First Treatment Date: 2019-05-09 @13:52 ARIA Last Treatment Date: 2019-05-18 @14:21 Reference Point ID Rectum ARIA Dosage Given to Date 14.4 ARIA in Gy Session Dosage Given 1.8 ARIA in Gy Plan ID Rectum ARIA Plan Name Rectum ARIA Fractions Treated to 8 of 25 ARIA Date Prescribed Dose Per 1.8 ARIA Fraction in Gy Prescription Dose in 4,500 ARIA cGy Specimen Performing Organization Address [facility] Phone Number [facility] [address] [place] [address] RAD ONC DAILY TREATMENT (05/17/2019 1:46 PM COMPRESSOR OPERATOR ADJUSTER) Pathologist Sig nature Course ID C1 ARIA Course Start Date 2019-05-02 @11:15 ARIA Treatment Elapsed Days 8 ARIA Course Intent Curative w/chemo ARIA Treatment Dates First Treatment Date: 2019-05-09 @13:52 ARIA Last Treatment Date: 2019-05-17 @13:42 Reference Point ID Rectum ARIA Dosage Given to Date 12.6 ARIA in Gy Session Dosage Given 1.8 ARIA in Gy Plan ID Rectum ARIA Plan Name Rectum ARIA Fractions Treated to 7 of 25 ARIA Date Prescribed Dose Per 1.8 ARIA Fraction in Gy Prescription Dose in 4,500 ARIA cGy Specimen Performing Organization Address [facility] Phone Number [facility] [address] [place] [address] RAD ONC DAILY TREATMENT (05/16/2019 1:33 PM COMPRESSOR OPERATOR ADJUSTER) Pathologist Sig nature Course ID C1 ARIA Course Start Date 2019-05-02 @11:15 ARIA Treatment Elapsed Days 7 ARIA Course Intent Curative w/chemo ARIA Treatment Dates First Treatment Date: 2019-05-09 @13:52 ARIA Last Treatment Date: 2019-05-16 @13:32 Reference Point ID Rectum ARIA Dosage Given to Date 10.8 ARIA in Gy Session Dosage Given 1.8 ARIA in Gy Plan ID Rectum ARIA Plan Name Rectum ARIA Fractions Treated to 6 of 25 ARIA Date Prescribed Dose Per 1.8 ARIA Fraction in Gy Prescription Dose in 4,500 ARIA cGy Specimen Performing Organization Address [facility] Phone Number [facility] [address] [place] [address] RAD ONC DAILY TREATMENT (05/15/2019 1:38 PM COMPRESSOR OPERATOR ADJUSTER) Pathologist Sig nature Course ID C1 ARIA Course Start Date 2019-05-02 @11:15 ARIA Treatment Elapsed Days 6 ARIA Course Intent Curative w/chemo ARIA Treatment Dates First Treatment Date: 2019-05-09 @13:52 ARIA Last Treatment Date: 2019-05-15 @13:38 Reference Point ID Rectum ARIA Dosage Given to Date 9 ARIA in Gy Session Dosage Given 1.8 ARIA in Gy Plan ID Rectum ARIA Plan Name Rectum ARIA Fractions Treated to 5 of 25 ARIA Date Prescribed Dose Per 1.8 ARIA Fraction in Gy Prescription Dose in 4,500 ARIA cGy Specimen Performing Organization Address [facility] Phone Number DEANN [address] [place] [address] RAD ONC DAILY TREATMENT (05/12/2019 1:45 PM COMPRESSOR OPERATOR ADJUSTER) Pathologist Sig nature Course ID C1 ARIA Course Start Date 2019-05-02 @11:15 ARIA Treatment Elapsed Days 3 ARIA Course Intent Curative w/chemo ARIA Treatment Dates First Treatment Date: 2019-05-09 @13:52 ARIA Last Treatment Date: 2019-05-12 @13:45 Reference Point ID Rectum ARIA Dosage Given to Date 7.2 ARIA in Gy Session Dosage Given 1.8 ARIA in Gy Plan ID Rectum ARIA Plan Name Rectum ARIA Fractions Treated to 4 of 25 ARIA Date Prescribed Dose Per 1.8 ARIA Fraction in Gy Prescription Dose in 4,500 ARIA cGy Specimen Performing Organization Address [facility] Phone Number DEANN [address] [place] [address] RAD ONC DAILY TREATMENT (05/11/2019 1:33 PM COMPRESSOR OPERATOR ADJUSTER) Pathologist Sig nature Course ID C1 ARIA Course Start Date 2019-05-02 @11:15 ARIA Treatment Elapsed Days 2 ARIA Course Intent Curative w/chemo ARIA Treatment Dates First Treatment Date: 2019-05-09 @13:52 ARIA Last Treatment Date: 2019-05-11 @13:33 Reference Point ID Rectum ARIA Dosage Given to Date 5.4 ARIA in Gy Session Dosage Given 1.8 ARIA in Gy Plan ID Rectum ARIA Plan Name Rectum ARIA Fractions Treated to 3 of 25 ARIA Date Prescribed Dose Per 1.8 ARIA Fraction in Gy Prescription Dose in 4,500 ARIA cGy Specimen Performing Organization Address [facility] Phone Number [facility] [address] [place] [address] RAD ONC DAILY TREATMENT (05/10/2019 1:33 PM COMPRESSOR OPERATOR ADJUSTER) Pathologist Sig nature Course ID C1 ARIA Course Start Date 2019-05-02 @11:15 ARIA Treatment Elapsed Days 1 ARIA Course Intent Curative w/chemo ARIA Treatment Dates First Treatment Date: 2019-05-09 @13:52 ARIA Last Treatment Date: 2019-05-10 @13:33 Reference Point ID Rectum ARIA Dosage Given to Date 3.6 ARIA in Gy Session Dosage Given 1.8 ARIA in Gy Plan ID Rectum ARIA Plan Name Rectum ARIA Fractions Treated to 2 of 25 ARIA Date Prescribed Dose Per 1.8 ARIA Fraction in Gy Prescription Dose in 4,500 ARIA cGy Specimen Performing Organization Address [facility] Phone Number [facility] [address] [place] [address] RAD ONC DAILY TREATMENT (05/09/2019 1:52 PM COMPRESSOR OPERATOR ADJUSTER) Pathologist Sig nature Course ID C1 ARIA Course Start Date 2019-05-02 @11:15 ARIA Treatment Elapsed Days 0 ARIA Course Intent Curative w/chemo ARIA Treatment Dates First Treatment Date: 2019-05-09 @13:52 ARIA Last Treatment Date: 2019-05-09 @13:52 Reference Point ID Rectum ARIA Dosage Given to Date 1.8 ARIA in Gy Session Dosage Given 1.8 ARIA in Gy Plan ID Rectum ARIA Plan Name Rectum ARIA Fractions Treated to 1 of 25 ARIA Date Prescribed Dose Per 1.8 ARIA Fraction in Gy Prescription Dose in 4,500 ARIA cGy Specimen Performing Organization Address [facility] Phone Number DEANN [address] [place] [address] MRI Pelvis W Wo Contrast (03/13/2019 2:45 PM COMPRESSOR OPERATOR ADJUSTER) Specimen Narrative Performed At This result has an attachment that is no t available. EXAMINATION: MRI PELVIS W WO CONTRAST HM RADIANT CLINICAL HISTORY: K62.89 Other specifi ed diseases of anus and rectum, Rectal Mass COMPARISON: CT dated 02/28/2019, MRI dated 02/28/2007. TECHNIQUE: Multiplanar, multisequence MR I of the pelvis with and without contrast material was performed with a rectal cancer staging protocol, including high-resolution oblique T2 images through the rectum. 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 Tumor is non-circumferent ial in morphology and measures approximately 2 cm transverse dimension as well. There is f ull-thickness invasion of as well as invasion beyond the muscularis propria, with tumor extending approximately 5 mm anteriorly into the mesorectal fat, compatible with T3 disease. 2.The anterior peritoneal reflection is poorly visualized, although given the low rectal location, tumor is likely below the reflection. 3.There is no suspicious mesorectal benjamin opathy. There is no extra mesorectal adenopathy in the pelvis. This is compatible with N0 disease. 4.The urinary bladder is unremarkable. 5.Status post left hip replacement. No suspicious os seous lesion. 6.Mild prostatomegaly. [facility]-[id number] Procedure Note [facility], Radiology Results Incoming - 03/14/2019 9:57 AM COMPRESSOR OPERATOR ADJUSTER EXAMINATION: MRI PELVIS W WO CONTRAST CLINICAL HISTORY: K62.89 Other specifie d diseases of anus and rectum, Rectal Mass COMPARISON: CT dated 02/28/2019, MRI rad ed 02/28/2007. TECHNIQUE: Multiplanar, multisequence MR I of the pelvis with and without contrast material was performed with a rectal cancer staging protocol, including high-resolution oblique T2 images through the rectum. 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 Tumor is non-circumferential in morphology and measures approximately 2 cm transverse dimension as well. There is f ull-thickness invasion of as well as invasion beyond the muscularis propria, with tumor extending approximately 5 mm anteriorly into the mesorectal fat, compatible with T3 disease. 2.The anterior peritoneal reflection is poorly visualized, although given the low rectal location, tumor is likely below the reflection. 3.There is no suspicious mesorectal benjamin opathy. There is no extra mesorectal adenopathy in the pelvis. This is compatible with N0 disease. 4.The urinary bladder is unremarkable. 5.Status post left hip replacement. No suspicious osseous lesion. 6.Mild prostatomegaly. [facility]-[id number] Performing Organization Address City/State/Zipcode Phone Number [facility] [address] [place] [address] Surgical pathology request (03/09/2019 12:02 PM COMPRESSOR OPERATOR ADJUSTER)Only the most recent of3 resultswithin the time period is included. [facility] DEPARTMENT OF PATHOLOGY AND GENOMIC MEDICINE Surgical pathology See link below for [facility] DEPARTMENT O F report PDF Lab Report PATHOLOGY AND GENOMIC MEDICINE Result status This is Supplemental [facility] DEPARTMENT OF Report for PATHOLOGY AND [id number] GENOMIC MEDICINE Specimen Performing Organization Address City/[facility] Phone Number [facility] DEPARTMENT OF PATHOLOGY AND [address] [place], [place] [address] Chest W Contrast Abdomen W Contrast Pelvis W Contrast (02/28/2019 5:18 PM COMPRESSOR OPERATOR ADJUSTER) Specimen Narrative Performed At EXAMINATION: CT CHEST W CONTRAST ABDOM EN W CONTRAST PELVIS W CONTRAST RADIANT CLINICAL HISTORY: K62.89 Other specified diseases of anus and rectum, rectal mass TECHNIQUE: Multiple axial images of the chest, abdomen , and pelvis were obtained following intravenous administration of iodin ated contrast. Sagittal and coronal computerized reform atted images were obtained. CT imaging was performed with iterative reconstruction techniques and/or automated exposure control to reduce rad iation dose. COMPARISON: 07/11/2014 FINDINGS: Chest: 1. No mediastinal or hilar masses are pr esent. 2.There are some nonspecific mediastinal lymph nodes. 3.Heart is enlarged, and there are coron pema artery calcifications. 4.There are no pleural effusions. 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 There is no acute i nfiltrate or mass. 6.There is bilateral gynecomastia. Abdomen: 1. Liver appears small. No masses are se en. 2.There is a calcified gallstone. 3.Spleen is not enlarged. 4.Portal vein is patent. 5.Pancreas, adrenals, and kidneys do not demonstrate any masses. 6.There is no retroperitoneal adenopathy or ascites. 7.There is an umbilical hernia containin g fat. 8.There is no intestinal obstruction. Pelvis: 1. There is some mild thickening of the lower rectal w all, which correspond to provided clinical history of rectal mass . This can be evaluated further by means of pelvis MRI with rectal protocol. 2.There is no pelvic adenopathy or fluid collection. 3.Prostate gland is slightly enlarged. 4.There is a left hip replacement. 5.There are degenerative changes in the lumbar spine. IMPRESSION: 1.Lower rectal wall thickening. Recommend pelvis MRI w ith rectal protocol. 2.No evidence of metastatic disease. 3.Incidental findings as mentioned above . [facility]-[id number] Procedure Note [facility], Radiology Results Incoming - 02/28/2019 6:13 PM COMPRESSOR OPERATOR ADJUSTER EXAMINATION: CT CHEST W CONTRAST ABDOMEN W CONTRAST PELVIS W CONTRAST CLINICAL HISTORY: K62.89 Other specifie d diseases of anus and rectum, rectal mass TECHNIQUE: Multiple axial images of the chest, abdomen, and pelvis were obtained following intravenous administration of iodinated contrast. Sagittal and coronal computerized reformatted images were obtained. CT imaging was performed with iterative reconstruction techniques and/or automated exposure control to reduce radiation dose. COMPARISON: 07/11/2014 FINDINGS: Chest: 1. No mediastinal or hilar masses are pr esent. 2.There are some nonspecific mediastinal lymph nodes. 3.Heart is enlarged, and there are coron pema artery calcifications. 4.There are no pleural effusions. 5.There are reduced lung volumes and per ipheral fibrotic changes consistent with UIP. There is no acute infiltrate or mass. 6.There is bilateral gynecomastia. Abdomen: 1. Liver appears small. No masses are se en. 2.There is a calcified gallstone. 3.Spleen is not enlarged. 4.Portal vein is patent. 5.Pancreas, adrenals, and kidneys do not demonstrate any masses. 6.There is no retroperitoneal adenopathy or ascites. 7.There is an umbilical hernia containin g fat. 8.There is no intestinal obstruction. Pelvis: 1. There is some mild thickening of the lower rectal wall, which correspond to provided clinical history of rectal mass. This can be evaluated further by means of pelvis MRI with rectal protocol. 2.There is no pelvic adenopathy or fluid collection. 3.Prostate gland is slightly enlarged. 4.There is a left hip replacement. 5.There are degenerative changes in the lumbar spine. IMPRESSION: 1.Lower rectal wall thickening. Recommen d pelvis MRI with rectal protocol. 2.No evidence of metastatic disease. 3.Incidental findings as mentioned above . [facility]-[id number] Performing Organization Address City/[facility]/Zipcode Phone Number [facility] [address] [place] [address] Partial thromboplastin time, activated (02/28/2019 1:44 PM COMPRESSOR OPERATOR ADJUSTER) PTT 36.2 (H) 23.0 - 36.0 [facility] Comment: [facility] PTT therapeutic range for unfractionated heparin is 61.0-112.0 seconds which corresponds to Anti-Xa 0.3-0.7 U/ml. Specimen Blood Performing Organization Address City/State/Zipcode Phone Number [facility] DEPARTMENT OF PATHOLOGY AND [address] [place] [address] [phone] [address] Prothrombin time with INR (02/28/2019 1:44 PM COMPRESSOR OPERATOR ADJUSTER) Prothrombin time 24.5 (H) 11.5 - 14.5 [facility] INR 2.3 [place] Comment: [facility] International Normalized Ratio (INR) is a [facility] monitoring tool for patients who are stable on oral anticoagulant therapy. An INR of 2.0-3.0 is suggested for deep vein thrombosis/pulmonary embolism. Specimen Blood Performing Organization Address [facility] Phone Number [facility] DEPARTMENT OF PATHOLOGY AND [address] [place] [address] [phone] [address] after 12/22/2018 Insurance Payer Benefit Plan / Subscriber ID Effective Dates Phone Addre ss Type Group MEDICARE MEDICARE PART A xxxxxxxxxxx 2002-Marlene [place] Medicare AND B t AAR AARP SUPPLEMENT xxxxxxxxxxx 2018-Present Commercial Guarantor Name Account Type Relation to Date of Phone Billing Patient Address Paul Zhang Personal/Family Self 1935 [address] (Home) [place] [address] Advance Directives For more information, please contact: [phone] Type Date Recorded Patient Title Department Manager Explanati on Advance Directives, Living Will and Medical Power of Employee Benefits Coordinator
--- OUTSIDE RECORDS SUMMARY | 2019-12-23 15:12 | XMS REPORT | Continuity of Care Document ---
:1935 Author Organization [facility] t Address [address] [place] [address] Care Team Providers Name Role Phone Franny Burr MD. Primary Care Physician Eulalio SABA Attending Clinician Unavailable Glen JACKSON PhD Attending Clinician Omar Wheatley MD Attending Clinician Only, Test Attending Clinician Unavailable Don Sanford MD Attending Clinician Provider Attending Clinician Unavailable Ann RN Attending Clinician Unavailable Abdirizak [facility] Attending Clinician Unavailable Jorge RN Attending Clinician Unavailable Silvio RN Attending Clinician Unavailable Moyvaalexus [facility] Attending Clinician Unavailable Drew RN Attending Clinician Unavailable Divine RN Attending Clinician Unavailable [facility]al [facility] Attending Clinician Unavailable Shaji Mcginnis MD Attending Clinician Ammon Ornelas Attending Clinician Josué Shultz MD Attending Clinician Arya Morocho MD Attending Clinician Omar Wheatley MD Admitting Clinician RAHEL Admitting Clinician Unavailable Payers Payer Name Policy Policy Number Effective Expiration Source Type Date Date MEDICAREMEDICARE PART xxxxxxxxxxx 2002 Rafa Nelson AND 00:00:00 [facility] [place] [place] [place] x[facility]xx 2018 [facility] SUPPLEMENTxxxxxxxxxxx 00:00:00 Met rashad 2018-PresentComme rcial Problems Condition Condition Condition Status Onset Resolution Last Treating Co mments Source Name Details Category Date Date Treatment Clinician Date Rectal Rectal Disease Active 2018-04 [facility] cancer cancer 2-23 [facility] 00:00: st 00 History of Past Illness Condition Condition Condition Status Onset Resolution Last Treating Co mments Source Name Details Category Date Date Treatment Clinician Date On On Disease Resolve 2019-08-03 2019-08-03 [facility] antineopla antineopla d 3-02 00:00:00 11:29:46 Methodi stic stic 00:00: st chemothera chemothera 00 py py Allergies, Adverse Reactions, Alerts Allergy Allergy Status Severity Reaction(s) Onset Inactive Treating Comm ents Source Name Type Date Date Clinician Robby Kitchen Active GI 2018-04 [facility] ty to Intolerance 0-30 Metho di adverse 00:00: st reaction 00 s to drug Social History Social Habit Start Date Stop Date Quantity Comments Source History [facility] Meth odist Alcohol Std Drinks History [facility] Meth odist Alcohol Binge Sex Assigned At [facility] ethodist Alcohol intake 2019-06-20 2019-06-[address] [facility] thodist 00:00:00 00:00:00 non-drinker (finding) History [facility] 2019-02-22 2019-02-22 1 [facility] Meth odist Alcohol Frequency 00:00:00 00:00:00 Smoking Status Start Date Stop Date Source Never smoker [facility] Methodis t Medications Ordered Filled Start Stop Current Ordering Indication Dosage Frequency Signature Comments Components Source Medication Medication Date Date Medication? Clinician (SIG) Name Name ezetimibe-s 2020- Yes 1{tbl} QD Take 1 [place] imvastatin 2-25 tablet by Meth wolf (VYTORIN) 15:02: mouth st 10-40 mg 18 nightly. per tablet acetaminoph 2020-0 Yes 650mg Q4H Insert 650 Herman en 2-25 mg into Methodi (TYLENOL) 15:02: the rectum st 650 MG 18 every 4 suppository (four) hours as needed for mild pain. cetirizine 2019-0 Yes 10mg QD Take 10 mg [place] (ZyrTEC) 10 2-25 by mouth Meth wolf MG tablet 15:02: daily. st 18 docosahexan 2019-0 Yes Take by Michelle ston oic 2-25 mouth. Methodi acid-epa 15:02: st (FISH OIL) 18 120-180 mg capsule ipratropium 2019-0 Yes 2{spray Q.5D 2 sprays Herman (ATROVENT) 2-25 } into each Meth wolf 42 mcg 15:02: nostril 2 st (0.06 %) 18 (two) nasal spray times a day. capecitabin 2020- No Rectal Take 3 [place] e (XELODA) 05-26 02-14 cancer tablets PO Methodi 500 mg 00:00: 23:59 (HCC) BID, 12 st chemo 00 :00 hours tablet apart with food. Take on days of radiation only (Wednesday through Wednesday only) ondansetron Yes Take 1 [place] (ZOFRAN) 8 1-08 tablet by Meth wolf MG tablet 00:00: mouth 00 twice daily 30 minutes before Capecitabi ne as needed for nausea and vomiting ondansetron 2020- No 4mg Q8H [place] ODT 1-07 02-06 [facility] (ZOFRAN-ODT 10:29: 10:28 st ) 55 :55 disintegrat ing tablet 4 mg capecitabin 2018-04 2020- No Rectal Take 3 [place] (XELODA) 01-20 cancer tabs twice [facility] 500 mg 00:00: 23:59 ([facility]) daily. st chemo 00 :00 Take 12 tablet hours apart with food. Begin taking on radiation treatment days (Wednesday- ONLY). warfarin 2018-04 Yes TK 1/2 T [place] (COUMADIN) 0-10 PO QD Methodi 1 MG tablet 00:00: st 00 warfarin 2018-04 Yes 4mg QD Take 4 mg [place] (COUMADIN) 0-10 by mouth Metho di 4 MG tablet 00:00: daily. st 00 tamsulosin Yes .4mg Q.5D Take 0.4 Michelle ston (FLOMAX) 9-14 mg by [facility] 0.4 mg 00:00: mouth 2 st capsule 00 (two) times a day. spironolact Yes TK1 T PO [place] one 9-06 TID WITH Methodi (ALDACTONE) 00:00: FOOD st 50 MG 00 tablet furosemide 2018- Yes Virgil (LASIX) 80 8-19 Methodi mg tablet 00:00: st 00 simvastatin 2018-0 Yes 80mg QD Take 80 mg Virgil (ZOCOR) 80 8-19 by mouth Metho di MG tablet 00:00: daily. st 00 Vital Signs Vital Name Observation Time Observation Value Comments Source Systolic blood 2019-06-20 15:01:00 133 mm[Hg] Arieto n Mosque pressure Diastolic blood 2019-06-20 15:01:00 81 mm[Hg] Leidy on [facility]que pressure Heart rate 2019-06-20 15:01:00 91 /min Virgil Wong Body temperature 2019-06-20 15:01:00 36.61 Petrona [place] [facility] Respiratory rate 2019-06-20 15:01:00 17 /min [place] [facility] Body height 2019-06-20 15:01:00 162.6 cm Virgil Wong Body weight 2019-06-20 15:01:00 74.9 kg Virgil Wong BMI 2019-06-20 15:01:00 28.34 kg/m2 Virgil Wong Oxygen saturation in 2019-06-20 15:01:00 98 /min Virgil Wong Arterial blood by Pulse oximetry Procedures Procedure Date / Time Performing Clinician Source Performed MRI ABD/PELVIC EXTERNAL 2019-11-09 13:03:00 Ana Rosa Carroll STUDY MRI ABD/PELVIC EXTERNAL 2019-11-09 12:31:00 Ana Rosa Carroll STUDY RAD ONC DAILY TREATMENT 2019-06-21 13:10:22 Provider, Arnulfo Wong URINE CULTURE 2019-06-20 16:08:00 Ana Rosa Carroll Met hodist HC COMPLETE BLD COUNT 2019-06-20 16:08:00 Ana Rosa Carroll W/AUTO DIFF COMPREHENSIVE METABOLIC 2019-06-20 16:08:00 Ana Rosa Carroll PANEL CARCINOEMBRYONIC ANTIGEN 2019-06-20 16:08:00 Ana Rosa Carroll (CEA) URINALYSIS SCREEN AND 2019-06-20 16:08:00 Abdelrahim, Maen [place] [facility] MICROSCOPY, WITH REFLEX TO CULTURE ESTIMATED GFR 2019-06-20 16:08:00 Glen Ana Rosa Virgil Met hodist RAD ONC DAILY TREATMENT 2019-06-20 13:19:40 Provider, Unknown [place] [facility] RAD ONC DAILY TREATMENT 2019-06-19 13:22:03 Provider, Unknown [place] [facility] RAD ONC DAILY TREATMENT 2019-06-14 13:46:15 Provider, Unknown [place] [facility] RAD ONC DAILY TREATMENT 2019-06-13 13:25:41 Provider, Unknown [place] [facility] RAD ONC DAILY TREATMENT 2019-06-12 13:14:58 Provider, Unknown [place] [facility] RAD ONC DAILY TREATMENT 2019-06-09 13:39:59 Provider, Unknown [place] [facility] RAD ONC DAILY TREATMENT 2019-06-08 13:19:42 Provider, Unknown [place] [facility] RAD ONC DAILY TREATMENT 2019-06-07 14:08:25 Provider, Unknown [place] [facility] RAD ONC DAILY TREATMENT 2019-06-02 13:51:12 Provider, Unknown [place] [facility] RAD ONC DAILY TREATMENT 2019-06-01 13:23:07 Provider, Unknown [place] [facility] RAD ONC DAILY TREATMENT 2019-05-31 13:46:42 Provider, Unknown [place] [facility] RAD ONC DAILY TREATMENT 2019-05-30 13:04:03 Provider, Unknown [place] [facility] RAD ONC DAILY TREATMENT 2019-05-29 13:26:54 Provider, Unknown [place] [facility] RAD ONC DAILY TREATMENT 2019-05-26 13:28:06 Provider, Unknown [place] [facility] RAD ONC DAILY TREATMENT 2019-05-25 13:08:24 Provider, Unknown [place] [facility] RAD ONC DAILY TREATMENT 2019-05-24 13:27:39 Provider, Unknown [place] [facility] RAD ONC DAILY TREATMENT 2019-05-23 12:59:43 Provider, Unknown [place] [facility] RAD ONC DAILY TREATMENT 2019-05-22 13:20:33 Provider, Unknown [place] [facility] CT CHEST W CONTRAST 2019-05-19 15:45:20 Jong Sanford COMPREHENSIVE METABOLIC 2019-05-19 14:19:00 Jong Sanford PANEL HC COMPLETE BLD COUNT 2019-05-19 14:19:00 Jong Sanford W/AUTO DIFF ESTIMATED GFR 2019-05-19 14:19:00 Jong Sanford Me thodist RAD ONC DAILY TREATMENT 2019-05-19 13:23:23 Provider, Unknown [place] [facility] RAD ONC DAILY TREATMENT 2019-05-18 14:21:48 Provider, Unknown [place] [facility] RAD ONC DAILY TREATMENT 2019-05-17 13:46:12 Provider, Unknown [place] [facility] RAD ONC DAILY TREATMENT 2019-05-16 13:33:05 Provider, Unknown [place] [facility] RAD ONC DAILY TREATMENT 2019-05-15 13:38:56 Provider, Unknown [place] [facility] RAD ONC DAILY TREATMENT 2019-05-12 13:45:18 Provider, Unknown [place] [facility] RAD ONC DAILY TREATMENT 2019-05-11 13:33:42 Provider, Unknown [place] [facility] RAD ONC DAILY TREATMENT 2019-05-10 13:33:55 Provider, Unknown [place] [facility] RAD ONC DAILY TREATMENT 2019-05-09 13:52:57 Provider, Unknown [place] [facility] HC COMPLETE BLD COUNT 2019-04-13 12:49:00 Rosita Ornelas Mosque W/AUTO DIFF MRI PELVIS W WO CONTRAST 2019-03-13 14:45:00 Adebayo Mcginnis SURGICAL PATHOLOGY REQUEST 2019-03-09 12:02:00 Adebayo Mcginnis COLONOSCOPY 2019-03-09 10:00:00 Adebayo Mcginnis Meth odist Shaji CT CHEST W CONTRAST ABDOMEN 2019-02-28 17:18:48 Adebayo Mcginnis W CONTRAST PELVIS W Shaji CONTRAST CARCINOEMBRYONIC ANTIGEN 2019-02-28 13:44:00 Adebayo Mcginnis (CEA) Shaji PARTIAL THROMBOPLASTIN TIME 2019-02-28 13:44:00 Adebayo Mcginnis (PTT) Shaji PROTHROMBIN TIME WITH INR 2019-02-28 13:44:00 Adebayo Mcginnis COMPREHENSIVE METABOLIC 2019-02-28 13:44:00 Adebayo Mcginnis PANEL Shaji COMPLETE BLD COUNT 2019-02-28 13:44:00 Adebayo Mcginnis Mosque W/AUTO DIFF Shaji ESTIMATED GFR 2019-02-28 13:44:00 RahelAdebayo sharpe Herman Yudith Girard Plan of Care Planned Activity Planned Date Details Comments Source Future Scheduled 2020-01-25 INFLUENZA VACCINE [place] [facility] Test 00:00:00 [code = INFLUENZA VACCINE] Future Scheduled 2002 65+ PNEUMOCOCCAL [facility] Test 00:00:00 VACCINE (1 of 2 - PCV13) [code = 65+ PNEUMOCOCCAL VACCINE (1 of 2 - PCV13)] Future Scheduled 1987 SHINGLES VACCINES (#1) H [place] [facility] Test 00:00:00 [code = SHINGLES VACCINES (#1)] Encounters Start End Encounter Admission Attending Care Care Encounter Source Date/Time Date/Time Type Type Clinicians Facility Department ID 2019-12-12 2019-12-12 Outpatient [facility] [id number] [facility] 00:00:00 00:00:00 MAEN 231 [facility] i 2019-12-05 2019-12-05 Outpatient [facility] [id number] [place] 00:00:00 00:00:00 MAEN 805 [facility] 2019-12-05 2019-12-05 Outpatient [facility] [id number] [facility] 00:00:00 00:00:00 MAEN 822 [facility] i 2019-11-29 2019-11-[id number] [id number] 07:16:00 10:03:00 Encounter Shaji Patel [id number] [place] 4.2.7.2.686 [facility] [id number] [place] 071 2019-11-28 2019-11-28 Laboratory Only, [id number] 10:25:51 10:40:51 Only Test Amanda [id number] [place] 4.2.7.2.686 [place] [id number] [facility] 2019-11-15 2019-11-15 [place] [id number] 08:07:00 12:40:00 Encounter Shaji Patel [id number] [place] 4.2.7.2.686 Surgical [id number] [place] 071 2019-11-14 2019-11-14 Laboratory Only, Ad[facility] [id number] 08:53:59 10:42:19 Only Test [place] [id number] [place] 4.2.7.2.686 [place] [id number] 2019-09-25 2019-09-25 Outpatient SUNNY, [facility] [id number] [place] 00:00:00 00:00:00 JONG [address] 2019-08-03 2019-08-03 Outpatient ABDELRAHIM, [facility] [id number] [facility] 00:00:00 00:00:00 ANA ROSA [address] 2019-06-21 2019-06-21 Outpatient [facility] [id number] [place] 00:00:00 00:00:[address] 2019-06-20 2019-06-20 Outpatient ONEILRAHIM, [facility] [id number] [facility] 00:00:00 00:00:00 ANA ROSA [address] 2019-06-20 2019-06-20 Outpatient [facility] [id number] [place] 00:00:00 00:00:[address] 2019-06-20 2019-06-20 Outpatient ABDDARONRAHIM, [facility] [id number] [facility] 00:00:00 00:00:00 ANA ROSA [address] 2019-06-20 2019-06-20 Outpatient SUNNY, [facility] [id number] [place] 00:00:00 00:00:00 JONG [address] 2019-06-20 2019-06-20 Outpatient SUNNY, [facility] [id number] [facility] 00:00:00 00:00:00 JONG [address] 2019-06-14 2019-06-14 Outpatient [facility] [id number] [place] 00:00:00 00:00:[address] 2019-06-13 2019-06-13 Outpatient [facility] [id number] [facility] 00:00:00 00:00:[address] 2019-06-12 2019-06-12 Outpatient [facility] [id number] [place] 00:00:00 00:00:[address] 2019-06-09 2019-06-09 Outpatient [facility] [id number] [place] 00:00:00 00:00:[address] 2019-06-08 2019-06-08 Outpatient LEEACH, [facility] [id number] [facility] 00:00:00 00:00:00 JONG [address] 2019-06-08 2019-06-08 Outpatient SUNNY, [facility] [id number] [facility] 00:00:00 00:00:00 JONG [address] 2019-06-08 2019-06-08 Outpatient [facility] [id number] [place] 00:00:00 00:00:[address] 2019-06-07 2019-06-07 Outpatient [facility] [id number] [place] 00:00:00 00:00:[address] 2019-06-05 2019-06-05 Outpatient [facility] [id number] [place] 00:00:00 00:00:[address] 2019-06-02 2019-06-02 Outpatient [facility] [id number] [place] 00:00:00 00:00:[address] 2019-06-01 2019-06-01 Outpatient SUNNY, [facility] [id number] [place] 00:00:00 00:00:00 JONG [address] 2019-06-01 2019-06-01 Outpatient [facility] [id number] [place] 00:00:00 00:00:[address] 2019-05-31 2019-05-31 Outpatient [facility] [id number] [place] 00:00:00 00:00:[address] 2019-05-30 2019-05-30 Outpatient [facility] [id number] [place] 00:00:00 00:00:[address] 2019-05-29 2019-05-29 Outpatient LEEACH, [facility] [id number] [facility] 00:00:00 00:00:00 JONG [address] 2019-05-29 2019-05-29 Outpatient [facility] [id number] [place] 00:00:00 00:00:[address] 2019-05-26 2019-05-26 Outpatient [facility] [id number] [facility] 00:00:00 00:00:[address] 2019-05-25 2019-05-25 Outpatient LEEACH, [facility] [id number] [facility] 00:00:00 00:00:00 JONG [address] 2019-05-25 2019-05-25 Outpatient [facility] [id number] [facility] 00:00:00 00:00:[address] 2019-05-24 2019-05-24 Outpatient [facility] [id number] [facility] 00:00:00 00:00:[address] 2019-05-23 2019-05-23 Outpatient [facility] [id number] [facility] 00:00:00 00:00:[address] 2019-05-22 2019-05-22 Outpatient [facility] [id number] [facility] 00:00:00 00:00:[address] 2019-05-19 2019-05-19 Outpatient LEEACH, [facility] [id number] [facility] 00:00:00 00:00:00 JONG [address] 2019-05-19 2019-05-19 Outpatient [facility] [id number] [facility] 00:00:00 00:00:[address] 2019-05-18 2019-05-18 Outpatient [facility] [id number] [facility] 00:00:00 00:00:[address] 2019-05-18 2019-05-18 Outpatient SUNNY, [facility] [id number] [facility] 00:00:00 00:00:00 JONG [address] 2019-05-18 2019-05-18 Outpatient [facility] [id number] [facility] 00:00:00 00:00:[address] 2019-05-17 2019-05-17 Outpatient [facility] [id number] [place] 00:00:00 00:00:[address] 2019-05-16 2019-05-16 Outpatient [facility] [id number] [place] 00:00:00 00:00:[address] 2019-05-15 2019-05-15 Outpatient [facility] [id number] [facility] 00:00:00 00:00:[address] 2019-05-12 2019-05-12 Outpatient [facility] [id number] [facility] 00:00:00 00:00:[address] 2019-05-11 2019-05-11 Outpatient [facility] [id number] [facility] 00:00:00 00:00:[address] 2019-05-11 2019-05-11 Outpatient FARACH, [facility] [id number] [facility] 00:00:00 00:00:00 JONG [address] 2019-05-11 2019-05-11 Outpatient [facility] [id number] [facility] 00:00:00 00:00:[address] 2019-05-10 2019-05-10 Outpatient [facility] [id number] [facility] 00:00:00 00:00:[address] 2019-05-09 2019-05-09 Outpatient FARACH, [facility] [id number] [facility] 00:00:00 00:00:00 JONG [address] 2019-05-02 2019-05-02 Outpatient [facility] [id number] [facility] 00:00:00 00:00:[address] 2019-05-02 2019-05-02 Outpatient FARACH, [facility] [id number] [facility] 00:00:00 00:00:00 JONG [address] 2019-05-02 2019-05-02 Outpatient FARACH, [facility] [id number] [facility] 00:00:00 00:00:00 JONG [address] 2019-05-02 2019-05-02 Outpatient FARACH, [facility] [id number] [facility] 00:00:00 00:00:00 JONG [address] 2019-04-18 2019-04-18 Outpatient FARACH, [facility] [id number] [facility] 00:00:00 00:00:00 JONG [address] 2019-03-13 2019-03-13 Outpatient RAHEL, [facility] [id number] [facility] 00:00:00 00:00:00 ADEBAYO [address] 2019-03-09 2019-03-09 Outpatient RAHEL, [place] [id number] [facility] 00:00:00 00:00:00 ADEBAYO [address] 2019-02-28 2019-02-28 Outpatient RAHEL, [facility] [id number] [facility] 00:00:00 00:00:00 ADEBAYO Hay [facility] Results Test Description Test Time Test Comments Results Result Sourc e Comments MRI Abd/Pelvic 2019-12-05 This exam was not Michelle ston External Study 22:35:16 acquired at a [facility] facility and has not been interpreted by a Mosque Provider. The exam was imported into our imaging system. RAD ONC DAILY TREATMENT 2019-06-21 13:10:22 Test Item Value Reference Range Interpretation Comme nts Course ID (test code = 5706) C1 Course Start Date (test code = 5707) 2019-05-02 @11:15 Treatment Elapsed Days (test code = 5709) 43 Course Intent (test code = 5686) Curative w/chemo Treatment Dates (test code = 5685) First Treatment Date: 2019-05-09 @13:52Last Treatment Date: 2019-06-21 @13:07 Reference Point ID (test code = 5710) Rectum Boost Dosage Given to Date in Gy (test code = 5.4 5711) Session Dosage Given in Gy (test code = 1.8 5712) Plan ID (test code = 5713) Rectum Boost Plan Name (test code = 5714) Rectum Boost Fractions Treated to Date (test code = 3 of 3 5715) Prescribed Dose Per Fraction in Gy (test 1.8 code = 5716) Prescription Dose in cGy (test code = 540 5717) [facility] MethodistUrinalysis screen and microscopy, with reflex to culture 2019-06-20 17:58:12 Test Item Value Reference Range Interpretation Comments Specimen site (test code = Clean catch 2044676) Color, UA (test code = 5778-6) Straw Appearance, UA (test code = Clear 5767-9) Specific gravity, UA (test code = 1.009 1.001-1.035 5811-5) pH, UA (test code = 5803-2) 7.0 5.0-8.5 Protein, UA (test code = 24435-6) Negative Negative Glucose, UA (test code = 25769-8) Negative Negative Ketones, UA (test code = 2514-8) Negative Negative Bilirubin, UA (test code = Negative Negative 5770-3) Blood, UA (test code = 5794-3) Small Negative A Nitrite, UA (test code = 5802-4) Negative Negative Urobilinogen, UA (test code = <2.0 <2.0 41555-8) Leukocyte esterase, UA (test code Negative Negative = 5799-2) WBC, UA (test code = 5821-4) <1 0- 1 /HPF RBC, UA (test code = 42173-2) 2 0- 5 /HPF Bacteria, UA (test code = None seen None seen 82384-5) Yeast, UA (test code = 19885-2) None seen Yeast with pseudohyphae, UA (test None seen code = 91013-9) Lab Interpretation (test code = Abnormal 36734-4) Virgil MethodistCarcinoembryonic antigen (CEA)2019-06-20 17:43:55 Test Item Value Reference Range Interpretation Comments CEA (test code = 4.5 ng/mL 0-3.8 H Reference r vicente for 2038-09) heavy smokers: 0.0 - 5.5 ng/mLThe [employer] 8000 CEA immunoassay was used. Results obtaine d with different assay methods or kits should not be used interchangeably and may be differen t. Lab Interpretation Abnormal (test code = 23012-0) Virgil MethodistComprehensive metabolic [id number] 17:27:04 Test Item Value Reference Range Interpretation Comments Sodium (test code = 134 135- 148 mEq/L L 2951-2) Potassium (test code = 4.0 3.5- 5.0 mEq/L 2823-3) Chloride (test code = 94 98- 112 mEq/L L 2074-0) CO2 (test code = 2027-) 26 24- 31 mEq/L Anion gap (test code = 14@ANIO 7- 15 mEq/L 16418-1) BUN (test code = 3094-0) 22 mg/dL 8-23 Creatinine (test code = 1.46 mg/dL 0.7-1.2 H 2160-0) Glucose (test code = 117 mg/dL 65-99 H 2345-7) Calcium (test code = 9.3 mg/dL 8.8-10.2 65265-6) Protein (test code = 7.4 g/dL 6.3-8.3 [place] 9994.6-7.0 2885-2) g/dL1 vufj0307.4-7.6 g/dL7 months-2uyki863 .1- 7.3 g/dL1-2 .6-7.5 g/dL>3 xbypy651.0-8.0 g/uV35-0466576. 3-8 .3 g/dL Albumin (test code = 3.9 g/dL 3.5-5 1751-7) A/G ratio (test code = 1.1 0.7-3.8 1759-0) Alkaline phosphatase 50 U/L 40-129 (test code = 6768-6) AST (test code = 1920-8) 34 U/L 10-50 ALT (test code = 1742-6) 16 U/L 5-50 Total bilirubin (test 0.8 mg/dL 0-1.2 code = 1974-2) Lab Interpretation (test Abnormal code = 36398-9) Herman MethodistEstimated [id number] 17:26:52 Test Item Value Reference Range Interpretation Comments Estimated GFR (test 44 mL/min/1.73 m2 A Caterg or Units code = 5488) InterpretationG 1 >=90 Coral l or highG2 60-89 Mildly decrease dG3a 45-59 Mil dly to moderately decr pnmadC8t 30-44 Moderately to s everely decreasedG4 15-29 Severe ly decreasedG5 <15 Kidney dilma lureThe eGFR was calcul ated using the Chron ic Kidney Disease Epidemiology Collaboration ( CKD-EPI) equation. Interpretation is based on recommendati ons of the National Ki dney Foundation-Kidn ey Disease Outcome s Quality Initiat charles (NKF-KDOQI) pub lished in 2013. Lab Interpretation Abnormal (test code = 14043-4) Herman MethodistUrine [id number] 17:22:14 Test Item Value Reference Range Interpretation Comments Urine culture (test SEE COMMENT Bacteriu la screen code = 5669744) negative. Herman MethodistCBC with platelet and [id number] 17:00:15 Test Item Value Reference Range Interpretation Comments WBC (test code = 07296-8) 5.61 4.50- 11.00 k/uL RBC (test code = 26395-0) 3.85 m/uL 4.4-6 L HGB (test code = 718-7) 12.0 g/dL 14-18 L HCT (test code = 4544-3) 34.5 % 41-51 L MCV (test code = 787-2) 89.6 fL 82-100 MCH (test code = 785-6) 31.2 pg 27-34 MCHC (test code = 786-4) 34.8 g/dL 31-37 RDW - SD (test code = 58.6 fL 37-55 H 93869-3) MPV (test code = 23591-7) 8.6 fL 8.8-13.2 L Platelet count (test code 223 150- 400 k/uL = 02157-3) Nucleated RBC (test code 0.00 /100 WBC = 52586-8) Neutrophils (test code = 74.5 % 39-69 H 70992-7) Lymphocytes (test code = 8.9 % 25-45 L 16470-2) Monocytes (test code = 11.8 % 0-10 H 87358-2) Eosinophils (test code = 3.6 % 0-5 69645-6) Basophils (test code = 0.5 % 0-1 64453-8) Immature granulocytes 0.7 % 0-1 "Immat ure (test code = 53853-5) granul ocytes" (promyelocytes, myelocytes, metamyelocytes) Lab Interpretation (test Abnormal code = 90660-9) [facility] MethodistRAD ONC DAILY [id number] 13:19:40 Test Item Value Reference Range Interpretation Comments Course ID (test code = C1 [id number]) Course Start Date (test 2019-05-02 @11:15 code = 5707) Treatment Elapsed Days 42 (test code = 5709) Course Intent (test code Curative w/chemo = 5686) Treatment Dates (test First Treatment Date: code = 5685) 2019-05-09 @13:52Last Treatment Date: 2019-06-20 @13:19 Reference Point ID (test Rectum Boost code = 5710) Dosage Given to Date in 3.6 Gy (test code = 5711) Session Dosage Given in 1.8 Gy (test code = 5712) Plan ID (test code = Rectum Boost 5713) Plan Name (test code = Rectum Boost 5714) Fractions Treated to 2 of 3 Date (test code = 5715) Prescribed Dose Per 1.8 Fraction in Gy (test code = 5716) Prescription Dose in cGy 540 (test code = 5717) [facility] [id number] 13:22:03 Test Item Value Reference Range Interpretation Comments Course ID (test code = C1 5706) Course Start Date (test 2019-05-02 @11:15 code = 5707) Treatment Elapsed Days 41 (test code = 5709) Course Intent (test code Curative w/chemo = 5686) Treatment Dates (test First Treatment Date: code = 5685) 2019-05-09 @13:52Last Treatment Date: 2019-06-19 @13:21 Reference Point ID (test Rectum Boost code = 5710) Dosage Given to Date in 1.8 Gy (test code = 5711) Session Dosage Given in 1.8 Gy (test code = 5712) Plan ID (test code = Rectum Boost 5713) Plan Name (test code = Rectum Boost 5714) Fractions Treated to 1 of 3 Date (test code = 5715) Prescribed Dose Per 1.8 Fraction in Gy (test code = 5716) Prescription Dose in cGy 540 (test code = 5717) [facility] [id number] 13:46:15 Test Item Value Reference Range Interpretation Comments Course ID (test code = C1 5706) Course Start Date (test 2019-05-02 @11:15 code = 5707) Treatment Elapsed Days 36 (test code = 5709) Course Intent (test code Curative w/chemo = 5686) Treatment Dates (test First Treatment Date: code = 5685) 2019-05-09 @13:52Last Treatment Date: 2019-06-14 @13:46 Reference Point ID (test Rectum code = 5710) Dosage Given to Date in 45 Gy (test code = 5711) Session Dosage Given in 1.8 Gy (test code = 5712) Plan ID (test code = Rectum 5713) Plan Name (test code = Rectum 5714) Fractions Treated to Date (test code = 5715) Prescribed Dose Per 1.8 Fraction in Gy (test code = 5716) Prescription Dose in cGy 4500 (test code = 5717) [facility] [id number] 13:25:41 Test Item Value Reference Range Interpretation Comments Course ID (test code = C1 5706) Course Start Date (test 2019-05-02 @11:15 code = 5707) Treatment Elapsed Days 35 (test code = 5709) Course Intent (test code Curative w/chemo = 5686) Treatment Dates (test First Treatment Date: code = 5685) 2019-05-09 @13:52Last Treatment Date: 2019-06-13 @13:25 Reference Point ID (test Rectum code = 5710) Dosage Given to Date in 43.2 Gy (test code = 5711) Session Dosage Given in 1.8 Gy (test code = 5712) Plan ID (test code = Rectum 5713) Plan Name (test code = Rectum 5714) Fractions Treated to Date (test code = 5715) Prescribed Dose Per 1.8 Fraction in Gy (test code = 5716) Prescription Dose in cGy 4500 (test code = 5717) [facility] [id number] 13:14:58 Test Item Value Reference Range Interpretation Comments Course ID (test code = C1 5706) Course Start Date (test 2019-05-02 @11:15 code = 5707) Treatment Elapsed Days 34 (test code = 5709) Course Intent (test code Curative w/chemo = 5686) Treatment Dates (test First Treatment Date: code = 5685) 2019-05-09 @13:52Last Treatment Date: 2019-06-12 @13:11 Reference Point ID (test Rectum code = 5710) Dosage Given to Date in 41.4 Gy (test code = 5711) Session Dosage Given in 1.8 Gy (test code = 5712) Plan ID (test code = Rectum 5713) Plan Name (test code = Rectum 5714) Fractions Treated to Date (test code = 5715) Prescribed Dose Per 1.8 Fraction in Gy (test code = 5716) Prescription Dose in cGy 4500 (test code = 5717) [facility] [id number] 13:39:59 Test Item Value Reference Range Interpretation Comments Course ID (test code = C1 5706) Course Start Date (test 2019-05-02 @11:15 code = 5707) Treatment Elapsed Days 31 (test code = 5709) Course Intent (test code Curative w/chemo = 5686) Treatment Dates (test First Treatment Date: code = 5685) 2019-05-09 @13:52Last Treatment Date: 2019-06-09 @13:39 Reference Point ID (test Rectum code = 5710) Dosage Given to Date in 39.6 Gy (test code = 5711) Session Dosage Given in 1.8 Gy (test code = 5712) Plan ID (test code = Rectum 5713) Plan Name (test code = Rectum 5714) Fractions Treated to Date (test code = 5715) Prescribed Dose Per 1.8 Fraction in Gy (test code = 5716) Prescription Dose in cGy 4500 (test code = 5717) [facility] [id number] 13:19:42 Test Item Value Reference Range Interpretation Comments Course ID (test code = C1 5706) Course Start Date (test 2019-05-02 @11:15 code = 5707) Treatment Elapsed Days 30 (test code = 5709) Course Intent (test code Curative w/chemo = 5686) Treatment Dates (test First Treatment Date: code = 568) 2019-05-09 @13:52Last Treatment Date: 2019-06-08 @13:19 Reference Point ID (test Rectum code = 5710) Dosage Given to Date in 37.8 Gy (test code = 5711) Session Dosage Given in 1.8 Gy (test code = 5712) Plan ID (test code = Rectum 5713) Plan Name (test code = Rectum 5714) Fractions Treated to Date (test code = 5715) Prescribed Dose Per 1.8 Fraction in Gy (test code = 5716) Prescription Dose in cGy 4500 (test code = 5717) [facility] [id number] 14:08:25 Test Item Value Reference Range Interpretation Comments Course ID (test code = C1 5706) Course Start Date (test 2019-05-02 @11:15 code = 5707) Treatment Elapsed Days 29 (test code = 5709) Course Intent (test code Curative w/chemo = 5686) Treatment Dates (test First Treatment Date: code = 5685) 2019-05-09 @13:52Last Treatment Date: 2019-06-07 @14:06 Reference Point ID (test Rectum code = 5710) Dosage Given to Date in 36 Gy (test code = 5711) Session Dosage Given in 1.8 Gy (test code = 5712) Plan ID (test code = Rectum 5713) Plan Name (test code = Rectum 5714) Fractions Treated to Date (test code = 5715) Prescribed Dose Per 1.8 Fraction in Gy (test code = 5716) Prescription Dose in cGy 4500 (test code = 5717) [facility] [id number] 13:51:12 Test Item Value Reference Range Interpretation Comments Course ID (test code = C1 5706) Course Start Date (test 2019-05-02 @11:15 code = 5707) Treatment Elapsed Days 24 (test code = 5709) Course Intent (test code Curative w/chemo = 5686) Treatment Dates (test First Treatment Date: code = 568) 2019-05-09 @13:52Last Treatment Date: 2019-06-02 @13:49 Reference Point ID (test Rectum code = 5710) Dosage Given to Date in 34.2 Gy (test code = 5711) Session Dosage Given in 1.8 Gy (test code = 5712) Plan ID (test code = Rectum 5713) Plan Name (test code = Rectum 5714) Fractions Treated to Date (test code = 5715) Prescribed Dose Per 1.8 Fraction in Gy (test code = 5716) Prescription Dose in cGy 4500 (test code = 5717) [facility] [id number] 13:23:07 Test Item Value Reference Range Interpretation Comments Course ID (test code = C1 5706) Course Start Date (test 2019-05-02 @11:15 code = 5707) Treatment Elapsed Days 23 (test code = 5709) Course Intent (test code Curative w/chemo = 5686) Treatment Dates (test First Treatment Date: code = 5685) 2019-05-09 @13:52Last Treatment Date: 2019-06-01 @13:22 Reference Point ID (test Rectum code = 5710) Dosage Given to Date in 32.4 Gy (test code = 5711) Session Dosage Given in 1.8 Gy (test code = 5712) Plan ID (test code = Rectum 5713) Plan Name (test code = Rectum 5714) Fractions Treated to Date (test code = 5715) Prescribed Dose Per 1.8 Fraction in Gy (test code = 5716) Prescription Dose in cGy 4500 (test code = 5717) [facility] [id number] 13:46:42 Test Item Value Reference Range Interpretation Comments Course ID (test code = C1 5706) Course Start Date (test 2019-05-02 @11:15 code = 5707) Treatment Elapsed Days 22 (test code = 5709) Course Intent (test code Curative w/chemo = 5686) Treatment Dates (test First Treatment Date: code = 5685) 2019-05-09 @13:52Last Treatment Date: 2019-05-31 @13:46 Reference Point ID (test Rectum code = 5710) Dosage Given to Date in 30.6 Gy (test code = 5711) Session Dosage Given in 1.8 Gy (test code = 5712) Plan ID (test code = Rectum 5713) Plan Name (test code = Rectum 5714) Fractions Treated to Date (test code = 5715) Prescribed Dose Per 1.8 Fraction in Gy (test code = 5716) Prescription Dose in cGy 4500 (test code = 5717) [facility] [id number] 13:04:03 Test Item Value Reference Range Interpretation Comments Course ID (test code = C1 5706) Course Start Date (test 2019-05-02 @11:15 code = 5707) Treatment Elapsed Days 21 (test code = 5709) Course Intent (test code Curative w/chemo = 5686) Treatment Dates (test First Treatment Date: code = 5685) 2019-05-09 @13:52Last Treatment Date: 2019-05-30 @13:03 Reference Point ID (test Rectum code = 5710) Dosage Given to Date in 28.8 Gy (test code = 5711) Session Dosage Given in 1.8 Gy (test code = 5712) Plan ID (test code = Rectum 5713) Plan Name (test code = Rectum 5714) Fractions Treated to Date (test code = 5715) Prescribed Dose Per 1.8 Fraction in Gy (test code = 5716) Prescription Dose in cGy 4500 (test code = 5717) [facility] [id number] 13:26:54 Test Item Value Reference Range Interpretation Comments Course ID (test code = C1 5706) Course Start Date (test 2019-05-02 @11:15 code = 5707) Treatment Elapsed Days 20 (test code = 5709) Course Intent (test code Curative w/chemo = 5686) Treatment Dates (test First Treatment Date: code = 5685) 2019-05-09 @13:52Last Treatment Date: 2019-05-29 @13:19 Reference Point ID (test Rectum code = 5710) Dosage Given to Date in 27 Gy (test code = 5711) Session Dosage Given in 1.8 Gy (test code = 5712) Plan ID (test code = Rectum 5713) Plan Name (test code = Rectum 5714) Fractions Treated to Date (test code = 5715) Prescribed Dose Per 1.8 Fraction in Gy (test code = 5716) Prescription Dose in cGy 4500 (test code = 5717) [facility] [id number] 13:28:06 Test Item Value Reference Range Interpretation Comments Course ID (test code = C1 5706) Course Start Date (test 2019-05-02 @11:15 code = 5707) Treatment Elapsed Days 17 (test code = 5709) Course Intent (test code Curative w/chemo = 5686) Treatment Dates (test First Treatment Date: code = 5685) 2019-05-09 @13:52Last Treatment Date: 2019-05-26 @13:27 Reference Point ID (test Rectum code = 5710) Dosage Given to Date in 25.2 Gy (test code = 5711) Session Dosage Given in 1.8 Gy (test code = 5712) Plan ID (test code = Rectum 5713) Plan Name (test code = Rectum 5714) Fractions Treated to Date (test code = 5715) Prescribed Dose Per 1.8 Fraction in Gy (test code = 5716) Prescription Dose in cGy 4500 (test code = 5717) [facility] [id number] 13:08:24 Test Item Value Reference Range Interpretation Comments Course ID (test code = C1 5706) Course Start Date (test 2019-05-02 @11:15 code = 5707) Treatment Elapsed Days 16 (test code = 5709) Course Intent (test code Curative w/chemo = 5686) Treatment Dates (test First Treatment Date: code = 5685) 2019-05-09 @13:52Last Treatment Date: 2019-05-25 @13:08 Reference Point ID (test Rectum code = 5710) Dosage Given to Date in 23.4 Gy (test code = 5711) Session Dosage Given in 1.8 Gy (test code = 5712) Plan ID (test code = Rectum 5713) Plan Name (test code = Rectum 5714) Fractions Treated to Date (test code = 5715) Prescribed Dose Per 1.8 Fraction in Gy (test code = 5716) Prescription Dose in cGy 4500 (test code = 5717) [facility] [id number] 13:27:39 Test Item Value Reference Range Interpretation Comments Course ID (test code = C1 5706) Course Start Date (test 2019-05-02 @11:15 code = 5707) Treatment Elapsed Days 15 (test code = 5709) Course Intent (test code Curative w/chemo = 5686) Treatment Dates (test First Treatment Date: code = 5685) 2019-05-09 @13:52Last Treatment Date: 2019-05-24 @13:26 Reference Point ID (test Rectum code = 5710) Dosage Given to Date in 21.6 Gy (test code = 5711) Session Dosage Given in 1.8 Gy (test code = 5712) Plan ID (test code = Rectum 5713) Plan Name (test code = Rectum 5714) Fractions Treated to Date (test code = 5715) Prescribed Dose Per 1.8 Fraction in Gy (test code = 5716) Prescription Dose in cGy 4500 (test code = 5717) [facility] [id number] 12:59:43 Test Item Value Reference Range Interpretation Comments Course ID (test code = C1 5706) Course Start Date (test 2019-05-02 @11:15 code = 5707) Treatment Elapsed Days 14 (test code = 5709) Course Intent (test code Curative w/chemo = 5686) Treatment Dates (test First Treatment Date: code = 5685) 2019-05-09 @13:52Last Treatment Date: 2019-05-23 @12:59 Reference Point ID (test Rectum code = 5710) Dosage Given to Date in 19.8 Gy (test code = 5711) Session Dosage Given in 1.8 Gy (test code = 5712) Plan ID (test code = Rectum 5713) Plan Name (test code = Rectum 5714) Fractions Treated to Date (test code = 5715) Prescribed Dose Per 1.8 Fraction in Gy (test code = 5716) Prescription Dose in cGy 4500 (test code = 5717) [facility] [id number] 13:20:33 Test Item Value Reference Range Interpretation Comments Course ID (test code = C1 5706) Course Start Date (test 2019-05-02 @11:15 code = 5707) Treatment Elapsed Days 13 (test code = 5709) Course Intent (test code Curative w/chemo = 5686) Treatment Dates (test First Treatment Date: code = 5685) 2019-05-09 @13:52Last Treatment Date: 2019-05-22 @13:20 Reference Point ID (test Rectum code = 5710) Dosage Given to Date in 18 Gy (test code = 5711) Session Dosage Given in 1.8 Gy (test code = 5712) Plan ID (test code = Rectum 5713) Plan Name (test code = Rectum 5714) Fractions Treated to Date (test code = 5715) Prescribed Dose Per 1.8 Fraction in Gy (test code = 5716) Prescription Dose in cGy 4500 (test code = 5717) [facility] [id number] 15:53:23Hm Interface, Radiology Results 05/19/2019 3:56 PM CSTEXAMINATION: CT CHEST W CONTRASTCLI NICAL HISTORY: 84 years Male R04.2 Hemoptysis, C20 Malignant neoplasm of rectum, Hemoptysis persistent or recurringTECHNIQUE: Multiple axial images of the chest were obtained following intravenous contrast. Sagittal and coronal computerized reformatted images were also obtained. CT imaging was performed with iterative reconstruction techniques and/or automated exposure control to reduce radiation dose. COMPARISON:February 28, 2019IMPRESSION:Lungs and airways: Subpleural reticular thickening with abasilar predominance. No definite honeycombing. No definite traction bronchiectasis. Nonspecific fibrosis is suspected. Finding is similar in appearance to prior. Mild bronchial wall thickening withoutdilatation most pronounced in the lung bases, right slightly greater than left compatible with bronchitis. Small amount of mucus plugging is present peripherally in the right lower lobeMild mosaic pattern throughout the lungs. No suspicious focal nodules or consolidationPleura: Small nonspecific subcentimeter mediastinal and hilar lymph nodes some of which are calcified likely from granulomatous diseaseMediastinum and lymph nodes: No lymphadenopathy. Cardiovascular: 4 chambered cardiomegaly, unchanged. Pulmonary artery is not dilated measuring 3.0 cm Moderate calcified atherosclerotic vascular disease in the coronary arteries and aorta.Upper abdomen: No suspicious abnormalities.Bones: Degenerativechanges of the osseous structures. No suspicious lesions. Other: Bilateral gynecomastiaSUMMARY:Subpleural reticular thickening with a basilar predominance. No definite honeycombing. No definite traction bronchiectasis. Nonspecific fibrosis is suspected. Finding is similar in appearance to prior. Mild bronchial wall thickening without dilatation most pronounced in the lung bases, right slightly greater than left compatible with bronchitis. Small amount of mucus plugging is present peripherally in theright lower [id number] [facility] [id number] 13:23:23 Test Item Value Reference Range Interpretation Comments Course ID (test code = C1 5706) Course Start Date (test 2019-05-02 @11:15 code = 5707) Treatment Elapsed Days 10 (test code = 5709) Course Intent (test code Curative w/chemo = 5686) Treatment Dates (test First Treatment Date: code = 5685) 2019-05-09 @13:52Last Treatment Date: 2019-05-19 @13:23 Reference Point ID (test Rectum code = 5710) Dosage Given to Date in 16.2 Gy (test code = 5711) Session Dosage Given in 1.8 Gy (test code = 5712) Plan ID (test code = Rectum 5713) Plan Name (test code = Rectum 5714) Fractions Treated to Date (test code = 5715) Prescribed Dose Per 1.8 Fraction in Gy (test code = 5716) Prescription Dose in cGy 4500 (test code = 5717) [facility] [id number] 14:21:48 Test Item Value Reference Range Interpretation Comments Course ID (test code = C1 5706) Course Start Date (test 2019-05-02 @11:15 code = 5707) Treatment Elapsed Days 9 (test code = 5709) Course Intent (test code Curative w/chemo = 5686) Treatment Dates (test First Treatment Date: code = 5685) 2019-05-09 @13:52Last Treatment Date: 2019-05-18 @14:21 Reference Point ID (test Rectum code = 5710) Dosage Given to Date in 14.4 Gy (test code = 5711) Session Dosage Given in 1.8 Gy (test code = 5712) Plan ID (test code = Rectum 5713) Plan Name (test code = Rectum 5714) Fractions Treated to Date (test code = 5715) Prescribed Dose Per 1.8 Fraction in Gy (test code = 5716) Prescription Dose in cGy 4500 (test code = 5717) [facility] [id number] 13:46:12 Test Item Value Reference Range Interpretation Comments Course ID (test code = C1 5706) Course Start Date (test 2019-05-02 @11:15 code = 5707) Treatment Elapsed Days 8 (test code = 5709) Course Intent (test code Curative w/chemo = 5686) Treatment Dates (test First Treatment Date: code = 5685) 2019-05-09 @13:52Last Treatment Date: 2019-05-17 @13:42 Reference Point ID (test Rectum code = 5710) Dosage Given to Date in 12.6 Gy (test code = 5711) Session Dosage Given in 1.8 Gy (test code = 5712) Plan ID (test code = Rectum 5713) Plan Name (test code = Rectum 5714) Fractions Treated to Date (test code = 5715) Prescribed Dose Per 1.8 Fraction in Gy (test code = 5716) Prescription Dose in cGy 4500 (test code = 5717) [facility] [id number] 13:33:05 Test Item Value Reference Range Interpretation Comments Course ID (test code = C1 5706) Course Start Date (test 2019-05-02 @11:15 code = 5707) Treatment Elapsed Days 7 (test code = 5709) Course Intent (test code Curative w/chemo = 5686) Treatment Dates (test First Treatment Date: code = 5685) 2019-05-09 @13:52Last Treatment Date: 2019-05-16 @13:32 Reference Point ID (test Rectum code = 5710) Dosage Given to Date in 10.8 Gy (test code = 5711) Session Dosage Given in 1.8 Gy (test code = 5712) Plan ID (test code = Rectum 5713) Plan Name (test code = Rectum 5714) Fractions Treated to 6 Date (test code = 5715) Prescribed Dose Per 1.8 Fraction in Gy (test code = 5716) Prescription Dose in cGy 4500 (test code = 5717) [facility] [id number] 13:38:56 Test Item Value Reference Range Interpretation Comments Course ID (test code = C1 5706) Course Start Date (test 2019-05-02 @11:15 code = 5707) Treatment Elapsed Days 6 (test code = 5709) Course Intent (test code Curative w/chemo = 5686) Treatment Dates (test First Treatment Date: code = 5685) 2019-05-09 @13:52Last Treatment Date: 2019-05-15 @13:38 Reference Point ID (test Rectum code = 5710) Dosage Given to Date in 9 Gy (test code = 5711) Session Dosage Given in 1.8 Gy (test code = 5712) Plan ID (test code = Rectum 5713) Plan Name (test code = Rectum 5714) Fractions Treated to Date (test code = 5715) Prescribed Dose Per 1.8 Fraction in Gy (test code = 5716) Prescription Dose in cGy 4500 (test code = 5717) [facility] [id number] 13:45:18 Test Item Value Reference Range Interpretation Comments Course ID (test code = C1 5706) Course Start Date (test 2019-05-02 @11:15 code = 5707) Treatment Elapsed Days 3 (test code = 5709) Course Intent (test code Curative w/chemo = 5686) Treatment Dates (test First Treatment Date: code = 5685) 2019-05-09 @13:52Last Treatment Date: 2019-05-12 @13:45 Reference Point ID (test Rectum code = 5710) Dosage Given to Date in 7.2 Gy (test code = 5711) Session Dosage Given in 1.8 Gy (test code = 5712) Plan ID (test code = Rectum 5713) Plan Name (test code = Rectum 5714) Fractions Treated to Date (test code = 5715) Prescribed Dose Per 1.8 Fraction in Gy (test code = 5716) Prescription Dose in cGy 4500 (test code = 5717) [facility] [id number] 13:33:42 Test Item Value Reference Range Interpretation Comments Course ID (test code = C1 5706) Course Start Date (test 2019-05-02 @11:15 code = 5707) Treatment Elapsed Days 2 (test code = 5709) Course Intent (test code Curative w/chemo = 5686) Treatment Dates (test First Treatment Date: code = 5685) 2019-05-09 @13:52Last Treatment Date: 2019-05-11 @13:33 Reference Point ID (test Rectum code = 5710) Dosage Given to Date in 5.4 Gy (test code = 5711) Session Dosage Given in 1.8 Gy (test code = 5712) Plan ID (test code = Rectum 5713) Plan Name (test code = Rectum 5714) Fractions Treated to 3 Date (test code = 5715) Prescribed Dose Per 1.8 Fraction in Gy (test code = 5716) Prescription Dose in cGy 4500 (test code = 5717) [facility] [id number] 13:33:55 Test Item Value Reference Range Interpretation Comments Course ID (test code = C1 5706) Course Start Date (test 2019-05-02 @11:15 code = 5707) Treatment Elapsed Days 1 (test code = 5709) Course Intent (test code Curative w/chemo = 5686) Treatment Dates (test First Treatment Date: code = 5685) 2019-05-09 @13:52Last Treatment Date: 2019-05-10 @13:33 Reference Point ID (test Rectum code = 5710) Dosage Given to Date in 3.6 Gy (test code = 5711) Session Dosage Given in 1.8 Gy (test code = 5712) Plan ID (test code = Rectum 5713) Plan Name (test code = Rectum 5714) Fractions Treated to 2 Date (test code = 5715) Prescribed Dose Per 1.8 Fraction in Gy (test code = 5716) Prescription Dose in cGy 4500 (test code = 5717) [facility] [id number] 13:52:57 Test Item Value Reference Range Interpretation Comments Course ID (test code = C1 5706) Course Start Date (test 2019-05-02 @11:15 code = 5707) Treatment Elapsed Days 0 (test code = 5709) Course Intent (test code Curative w/chemo = 5686) Treatment Dates (test First Treatment Date: code = 5685) 2019-05-09 @13:52Last Treatment Date: 2019-05-09 @13:52 Reference Point ID (test Rectum code = 5710) Dosage Given to Date in 1.8 Gy (test code = 5711) Session Dosage Given in 1.8 Gy (test code = 5712) Plan ID (test code = Rectum 5713) Plan Name (test code = Rectum 5714) Fractions Treated to 25 Date (test code = 5715) Prescribed Dose Per 1.8 Fraction in Gy (test code = 5716) Prescription Dose in cGy 4500 (test code = 5717) [facility] [id number] 11:17:54 Test Item Value Reference Range Interpretation Comments Case number (test [id number] code = [id number]) Surgical pathology See link below for PDF report (test code = Lab Report [id number]) Result status (test This is Supplemental code = [id number]) [id number] [id number] 09:53:51Hm Interface, Radiology Results Incoming - 03/14/2019 9:57 AM CSTEXAMINATION: MRI PELVIS W WO CONTRASTCLINICAL HISTORY: K62.89 Other specified diseases of anus and rectum, Rectal MassCOMPARISON: CTdated 02/28/2019, MRI dated 02/28/2007.TECHNIQUE: Multiplanar, multisequence MRI of the pelvis with and without contrast material was performed with a rectal cancer staging protocol, including high-resolution oblique T2 images through the rectum.IMPRESSION:1.There is a low anterior rectal tumor with inferior margin approximately 5 cm from the anal verge, and which extends approximately 2 cm in craniocaudal/longitudinal dimension. Tumor is non-circumferential in morphology and measures approximately 2 cm transverse dimension as well. There is full- thickness invasion of as well as invasion beyond the muscularis propria, with tumor extending approximately 5 mm anteriorly into the mesorectal fat, compati ble with T3 disease. 2.The anterior peritoneal reflection is poorly visualized, although given the low rectal location, tumor is likely below the reflection.3.There is no suspicious mesorectal adenopathy. There is no extra mesorectal adenopathy in the pelvis. This is compatible with N0 disease.4.The u rinary bladder is unremarkable.5.Status post left hip replacement. No suspicious osseous lesion.6.Mild prostatomegaly.[facility]-[id number] [place] CT Chest W Contrast Abdomen W Contrast Pelvis W [id number] 18:10:10Hm Interface, Radiology Results Incoming - 02/28/2019 6:13 PM CSTEXAMINATION: CT CHEST W CONTRAST ABDOMEN W CONTRAST PELVIS W CONTRASTCLINICAL HISTORY: K62.89 Other specified diseases of anus and rectum, rectal massTECHNIQUE: Multiple axial images of the chest, abdomen, and pelvis were obtained following intravenous administration of iodinated contrast. Sagittal and coronal computerized reformatted images were obtained.CT imaging was performed with iterative reconstruction techniques and/or automated exposure control to reduce radiation dose.COMPARISON: 07/11/2014FINDINGS:Chest: 1. 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 There is no acute infiltrate or mass.6.There is bilateral gynecomastia.Abdomen:1. Liver appears small. No masses are seen.2.There is a ca lcified gallstone.3.Spleen is not enlarged.4.Portal vein is patent.5.Pancreas, adrenals, and kidneysdo not demonstrate any masses.6.There is no retroperitoneal adenopathy or ascites.7.There is an umbilical hernia containing fat.8.There is no intestinal obstruction.Pelvis:1. There is some mild thickening of the lower rectal wall, which correspond to provided clinical history of rectal mass. This can be evaluated further by means of pelvis MRI with rectal protocol.2.There is no pelvic adenopathy or fluid collection.3.Prostate gland is slightly enlarged.4.There is a left hip replacement.5.There are degenerative changes in the lumbar spine.IMPRESSION:1.Lower rectal wall thickening. Recommend pelvis MRI with rectal protocol.2.No evidence of metastatic disease.3.Incidental findings as mentioned above.[facility]-[id number] MethodistPartial thromboplastin time, [id number] 14:24:25 Test Item Value Reference Range Interpretation Comments PTT (test code = 36.2 23.0- 36.0 sec H PTT thera peutic range 95338-0) for unfractiona manuelito heparin is61.0- 112.0 seconds which corresponds to Anti-Xa0.3-0.7 U/ml. Lab Interpretation Abnormal (test code = 98989-7) Virgil WongProthrombin time with [id number] 14:24:22 Test Item Value Reference Range Interpretation Comments Prothrombin time (test 24.5 11.5- 14.5 sec H code = 5902-2) INR (test code = 2.3 The Interna tional 26123-3) Normalized Rati o (INR) is a therapeuti c monitoring tool for patients who ar e stable on oral anticoagulant t herapy. An INR of 2.0-3 .0 is suggested for d eep vein thrombosis/pulm onary embolism. Lab Interpretation Abnormal (test code = 93156-8) Virgil Wong
[2019-12-23] MEDS ORDERED: CEFAZOLIN/SWI 1gm 1 GM/10 ML SYR ONE (15:52)
[2019-12-23] MEDS ORDERED: TETANUS & DIPHTHERIA TOX,ADULT 0.5 ML VIAL ONE (15:53)
[2019-12-23] MEDS ORDERED: D5 0.45 NS 1,000 ML with POTASSIUM CL 10 MEQ IV SCH ×2 (16:00)
--- NOTE | 2019-12-23 16:45 | RAD REPORT ---
EXAM DESCRIPTION: RAD - Nasal Bones - 12/23/2019 4:20 pm CLINICAL HISTORY: DEFORMITY, blunt force trauma to the nose COMPARISON: No comparisons FINDINGS: No nasal bone fracture confirmed. On the right lateral view the linear density anterior to the maxillary sinuses is probably overlapping structures rather than bone fragment. Significant soft tissue wound is evident. No air-fluid level in the paranasal sinuses. Nasal septum is in the midline.
--- NOTE | 2019-12-23 16:55 | EDPHYS ---
Physician Documentation [facility] Name: Paul Zhang Age: 84 yrs Sex: Male : 1935 Arrival Date: 12/23/2019 Time: 15:06 Bed 2 Private MD: ED Physician Kody Tipton HPI: 12/22 15:54 This 84 yrs old Male presents to ER via Ambulatory with complaints of ma2 Laceration To Nose. 15:54 The patient has a laceration occurred at home, The injury was accidental. Onset: The ma2 symptoms/episode began/occurred suddenly, 1 hour(s) ago. Associated signs and symptoms: Pertinent negatives:. The patient has not experienced similar symptoms in the past. was grinding wood and lost control and it backed up to his face, has deep laceration of nose below nasal bridge all the way through cartilage, bon is exposed . Historical: - Allergies: 15:09 No Known Allergies; hb - Home Meds: 15:09 Warfarin Oral [Active]; hb - Immunization history:: Adult Immunizations up to date. - Social history:: Smoking status: Patient denies any tobacco usage or history of. - Family history:: not pertinent. ROS: 15:54 Constitutional: Negative for fever, chills, and weight loss. ma2 15:54 All other systems are negative. Exam: 15:54 Constitutional: This is a well developed, well nourished patient who is awake, alert, ma2 and in no acute distress. Head/Face: has transverse nasal laceration that is deep through the cartilage, bone is exposed.. bleeding is controled Eyes: Pupils equal round and reactive to light, extra-ocular motions intact. Lids and lashes normal. Conjunctiva and sclera are non-icteric and not injected. Cornea within normal limits. Periorbital areas with no swelling, redness, or edema. ENT: Nares patent. Tympanic membranes are normal and external auditory canals are clear. Oropharynx with no redness, swelling, or masses, exudates, or evidence of obstruction, uvula midline. Mucous membranes moist. Neck: Trachea midline, no thyromegaly or masses palpated, and no cervical lymphadenopathy. Supple, full range of motion without nuchal rigidity, or vertebral point tenderness. No Meningismus. Chest/axilla: Normal chest wall appearance and motion. Nontender with no deformity. No lesions are appreciated. Cardiovascular: Regular rate and rhythm with a normal S1 and S2. No gallops, murmurs, or rubs. Normal PMI, no JVD. No pulse deficits. Respiratory: Lungs have equal breath sounds bilaterally, clear to auscultation and percussion. No rales, rhonchi or wheezes noted. No increased work of breathing, no retractions or nasal flaring. Abdomen/GI: Soft, non-tender, with normal bowel sounds. No distension or tympany. No guarding or rebound. No evidence of tenderness throughout. Vital Signs: 15:06 BP 139 / 71; Pulse 84; Resp 16; Temp 98.6; Pulse Ox 97% ; Weight 74.84 kg; Height 5 ft. hb 4 in. (162.56 cm); Pain 1/10; 15:54 BP 102 / 56; Pulse 80; Resp 16; Pulse Ox 100% on R/A; hb 17:00 BP 140 / 90; Pulse 79; Resp 18; Pulse Ox 100% ; sv 18:15 BP 128 / 64; Pulse 78; Resp 17; Pulse Ox 100% on R/A; hb 15:06 Body Mass Index 28.32 (74.84 kg, 162.56 cm) hb MDM: 15:27 Patient medically screened. [facility] 15:54 Differential diagnosis: superficial laceration, tendon injury, vascular injury. [facility] 16:51 Data reviewed: vital signs, nurses notes. Counseling: I had a detailed discussion with [facility] the patient and/or guardian regarding: the historical points, exam findings, and any diagnostic results supporting the discharge/admit diagnosis, the presence of at least one elevated blood pressure reading (>120/80) during this emergency department visit, the need for outpatient follow up. Response to treatment: the patient's symptoms have markedly improved after treatment. ED course: patent has deep nasal laceration through the cartilage and he will needs plastic or OMFS or ENT surgeon, non of these services available in our hospital will transfer for higher level . 17:09 ED course: accepted by Dr. Kulkarni. [facility] 12/22 15:38 Order name: XRAY Nasal Bones [facility] 12/22 15:38 Order name: NPO; Complete Time: 15:54 [facility] 12/22 16:26 Order name: Dressing - Wound; Complete Time: 16:59 ma2 Administered Medications: 15:54 Drug: Ancef 1 grams Route: IVPB; Site: right antecubital; hb 16:55 Follow up: IV Status: Completed infusion; IV Intake: 10ml hb 17:08 Follow up: Response: No adverse reaction hb 15:54 Drug: Tetanus-Diphtheria Toxoid Adult 0.5 ml {Medical Transcriptionist: [employer]. Exp: hb 06/15/2022. Lot #: [id number]. } Route: IM; Site: left deltoid; 16:35 Follow up: Response: No adverse reaction hb 16:45 Drug: Dextrose 5 % in 1/2 Normal Saline with KCl 10 mEq/L 1000 ml Route: IV; Rate: 100 ss ml/hr; Site: left antecubital; 18:45 Follow up: Response: No adverse reaction; IV Status: Infusion continued upon transfer; hb IV Intake: 225ml 16:50 Drug: morphine 4 mg Route: IVP; Site: left antecubital; hb 17:08 Follow up: Response: No adverse reaction hb 16:50 Drug: Zofran (Ondansetron) 4 mg Route: IVP; Site: left antecubital; hb 17:08 Follow up: Response: No adverse reaction hb Disposition: 12/23/19 16:55 Transfer ordered to [facility]. Diagnosis is Laceration without foreign body of nose. - Reason for transfer: Higher level of care. - Accepting physician is Dr. Colvin. - Condition is Stable. - Problem is new. - Symptoms are unchanged. Signatures: Dispatcher [employer] EDMS Josette García RN RN Joselin Plaza RN RN Kody Tipton MD MD ma2 Corrections: (The following items were deleted from the chart) 17:46 16:55 12/23/2019 16:55 Transfer ordered to [facility]. Diagnosis is Laceration ma2 without foreign body of nose. Reason for transfer: Higher level of care. Accepting physician is [facility]. Condition is Stable. Problem is new. Symptoms are unchanged. ma2 18:56 17:46 12/23/2019 16:55 Transfer ordered to [facility]. Diagnosis is Laceration hb without foreign body of nose. Reason for transfer: Higher level of care. Accepting physician is Dr. Colvin. Condition is Stable. Problem is new. Symptoms are unchanged. ma2
--- NOTE | 2019-12-23 16:55 | ER ---
Nurse's Notes [facility] Name: Paul Zhang Age: 84 yrs Sex: Male : 1935 Arrival Date: 12/23/2019 Time: 15:06 Bed 2 Private MD: Diagnosis: Laceration without foreign body of nose Presentation: 12/22 15:06 Chief complaint: EMS states: Laceration to bridge of nose after salt grinder skipped up and hb hit him on the nose. Coronavirus screen: At this time, the client does not indicate any symptoms associated with coronavirus-19. Ebola Screen: No symptoms or risks identified at this time. Complicating Factors: There are no complicating factors for this patient. Initial Sepsis Screen: Does the patient meet any 2 criteria? No. Patient's initial sepsis screen is negative. Does the patient have a suspected source of infection? No. Patient's initial sepsis screen is negative. Risk Assessment: Do you want to hurt yourself or someone else? Patient reports no desire to harm self or others. Onset of symptoms was December 23, 2019. 15:06 Method Of Arrival: Ambulatory hb 15:06 Acuity: ERNESTO 3 hb Triage Assessment: 15:09 General: Appears in no apparent distress. Behavior is calm, cooperative. Pain: Pain hb currently is 1 out of 10 on a pain scale. EENT: No signs and/or symptoms were reported regarding the EENT system. Neuro: Level of Consciousness is awake, alert, obeys commands, Oriented to person, place, time, situation. Cardiovascular: Capillary refill < 3 seconds Patient's skin is warm and dry. Respiratory: Respiratory effort is even, unlabored, Respiratory pattern is regular, symmetrical. GI: No signs and/or symptoms were reported involving the gastrointestinal system. : No signs and/or symptoms were reported regarding the genitourinary system. Derm: Skin is pink, warm \T\ dry. Musculoskeletal: No signs and/or symptoms reported regarding the musculoskeletal system. Injury Description: Laceration sustained to bridge of nose is 2.6 to 7.5 cm long, bleeding moderately, was sustained 30-60 minutes ago. Historical: - Allergies: 15:09 No Known Allergies; hb - Home Meds: 15:09 Warfarin Oral [Active]; hb - Immunization history:: Adult Immunizations up to date. - Social history:: Smoking status: Patient denies any tobacco usage or history of. - Family history:: not pertinent. Screenin:10 Abuse screen: Denies threats or abuse. Denies injuries from another. Nutritional hb screening: No deficits noted. Tuberculosis screening: No symptoms or risk factors identified. Fall Risk None identified. Assessment: 15:10 General: see triage. hb 16:00 Reassessment: Patient appears in no apparent distress at this time. Patient and/or hb family updated on plan of care and expected duration. Pain level reassessed. Patient is alert, oriented x 3, equal unlabored respirations, skin warm/dry/pink. 17:00 Reassessment: Patient appears in no apparent distress at this time. Patient and/or hb family updated on plan of care and expected duration. Pain level reassessed. Patient is alert, oriented x 3, equal unlabored respirations, skin warm/dry/pink. 18:00 Reassessment: Patient appears in no apparent distress at this time. Patient and/or hb family updated on plan of care and expected duration. Pain level reassessed. Patient is alert, oriented x 3, equal unlabored respirations, skin warm/dry/pink. 18:25 Reassessment: Report called to Yeni CHAPA at [facility]. Vital Signs: 15:06 BP 139 / 71; Pulse 84; Resp 16; Temp 98.6; Pulse Ox 97% ; Weight 74.84 kg; Height 5 ft. hb 4 in. (162.56 cm); Pain 1/10; 15:54 BP 102 / 56; Pulse 80; Resp 16; Pulse Ox 100% on R/A; hb 17:00 BP 140 / 90; Pulse 79; Resp 18; Pulse Ox 100% ; sv 18:15 BP 128 / 64; Pulse 78; Resp 17; Pulse Ox 100% on R/A; hb 15:06 Body Mass Index 28.32 (74.84 kg, 162.56 cm) ED Course: 15:06 Patient arrived in ED. hb 15:08 Triage completed. hb 15:09 Arm band placed on. hb 15:10 Patient has correct armband on for positive identification. Bed in low position. Call light in reach. 15:27 Kody Tipton MD is Attending Physician. ma2 15:45 Inserted saline lock: 18 gauge in left antecubital area, using aseptic technique. dh3 16:08 XRAY Nasal Bones In Process Unspecified. EDMS 16:30 initiated a transfer with Saniya Callejas from the [facility] at the request eb of the patient's family. 16:44 Josette García, RN is Primary Nurse. ss 16:57 Dressings: wet to dry, normal saline and 4x4's. dh3 17:[address] Kulkarni the maxillofacial surgeon admission nurse for [facility] with Dr. mayra Tipton for patient transfer consultation. 17:[address] Mckinney the emergency room surgeon admission nurse for [facility] with Dr. Saeed nunez for patient transfer consultation. 17:48 administrative approval given by Saniya Callejas/ patient has been accepted to [facility] ER/ Dr. Mode Mckinney has accepted the patient in transfer/ report to be called to [phone]. 18:31 Primary Nurse role handed off by Josette García RN hb 18:31 Joeslin Plaza RN is Primary Nurse. hb 18:55 No provider procedures requiring assistance completed. Patient transferred, IV remains hb in place. Administered Medications: 15:54 Drug: Ancef 1 grams Route: IVPB; Site: right antecubital; hb 16:55 Follow up: IV Status: Completed infusion; IV Intake: 10ml hb 17:08 Follow up: Response: No adverse reaction hb 15:54 Drug: Tetanus-Diphtheria Toxoid Adult 0.5 ml {Floater Operator: [employer]. Exp: hb 06/15/2022. Lot #: [id number]. } Route: IM; Site: left deltoid; 16:35 Follow up: Response: No adverse reaction hb 16:45 Drug: Dextrose 5 % in 1/2 Normal Saline with KCl 10 mEq/L 1000 ml Route: IV; Rate: 100 ss ml/hr; Site: left antecubital; 18:45 Follow up: Response: No adverse reaction; IV Status: Infusion continued upon transfer; hb IV Intake: 225ml 16:50 Drug: morphine 4 mg Route: IVP; Site: left antecubital; hb 17:08 Follow up: Response: No adverse reaction hb 16:50 Drug: Zofran (Ondansetron) 4 mg Route: IVP; Site: left antecubital; hb 17:08 Follow up: Response: No adverse reaction hb Intake: 16:55 IV: 10ml; Total: 10ml. hb 18:45 IV: 225ml; Total: 235ml. hb Outcome: 16:55 ER care complete, transfer ordered by . marjan 18:55 Transferred by ground EMS to [facility]. hb 18:55 Condition: stable 18:55 Discharge instructions given to patient, family, Instructed on the need for transfer, Demonstrated understanding of instructions. 18:56 Patient left the ED. hb Signatures: Dispatcher [employer] EDKenna Kruger RN EDUARD Josette García RN RN Joselin Plaza RN RN Hayley May 3 Kody Tipton MD MD ma2 Bot[place], Elizabeth eb Corrections: (The following items were deleted from the chart) 15:08 15:06 BP 139 / 71; Pulse 84bpm; Resp 16bpm; Pulse Ox 97%; Temp 98.6F; 74.84 kg; Height hb 5 ft. 4 in.; BMI: 28.3; Pain 8/10; hb
[2019-12-23] MEDS ORDERED: ONDANSETRON 4 MG/2 ML VIAL ONE (16:58)
[2019-12-23] MEDS ORDERED: MORPHINE 4 MG/ML SYR ONE (16:58)
== END 2019-12-23 18:56 | disposition short-term general hospital (02) ==
LOC: ER 15:05
DX: S01.21XA Laceration without foreign body of nose, initial encounter (principal); W22.8XXA Striking against or struck by other objects, initial encounter; Y93.89 Activity, other specified; Y92.009 Unspecified place in unspecified non-institutional (private) residence as the place of occurrence of the external cause; Z23 Encounter for immunization; Z79.01 Long term (current) use of anticoagulants
CPT/HCPCS: 70160; 90714; J3480; J0690; J7799; J2405; 90471; 99285